=== PATIENT | female | born 1940 | race Caucasian/White ===

== ENCOUNTER → 2017-08-18 12:45 | Outpatient (CLI) | payer MEDICARE, OTHER, SELFPAY ==
--- NOTE | 2017-08-18 | DI.MG.S_ITS ---
UNILATERAL RIGHT DIGITAL DIAGNOSTIC MAMMOGRAM 3D/2D SHORT-TERM FOLLOW-UP: 08/18/2017 CLINICAL: Patient returns for a 6 month follow up of the right breast. Comparison is made to exams dated: 02/23/2017 mammogram, 02/09/2017 mammogram, and 01/17/2015 mammogram - [facility]. The tissue of the right breast is heterogeneously dense. This may lower the sensitivity of mammography. There is a 1 cm oval low density mass with an indistinct margin in the right breast at 10 o'clock middle depth. This is not seen in additional views. No other significant masses or calcifications are seen in the breast. IMPRESSION: PROBABLY BENIGN The 1 cm oval low density mass in the right breast is probably benign. Follow-up mammogram and ultrasound in 6 months is recommended. A follow-up mammogram and an ultrasound in 6 months is recommended to demonstrate stability. This exam was interpreted at Station ID: [id number]. NOTE: For mammograms, a report in lay terms will be sent to the patient. Approximately 15% of breast malignancies will not be visualized mammographically. In the management of a palpable breast mass, a negative mammogram must not discourage biopsy of a clinically suspicious lesion. Electronically Signed By: Corby coombs/boni:08/18/2017 15:56:12 letter sent: Followup Recommended ACR BI-RADS Category 3: Probably benign [id number]
== END ==
PROVIDERS: Family Provider Family Medicine; PCP Family Medicine; Visit Provider Family Medicine
DX: R92.8 Other abnormal and inconclusive findings on diagnostic imaging of breast (principal); N63.11 Unspecified lump in the right breast, upper outer quadrant
CPT/HCPCS: 77065; G0279

== ENCOUNTER → 2017-12-30 09:46 | Outpatient (CLI) | payer MEDICARE, OTHER, SELFPAY | PROVIDERS: PCP Family Medicine; Visit Provider Family Medicine | DX: M81.0 Age-related osteoporosis without current pathological fracture (principal); Z78.0 Asymptomatic menopausal state | CPT/HCPCS: 77080 ==

== ENCOUNTER → 2018-02-26 09:13 | Outpatient (CLI) | payer MEDICARE, OTHER, SELFPAY ==
--- NOTE | 2018-02-26 | DI.RAD.S_ITS ---
PROCEDURE: XR LUMBAR SPINE 2-3V INDICATIONS: LOW BACK PAIN TECHNIQUE: 3 views of the lumbar spine were acquired. COMPARISON: None. FINDINGS: Bones: No fracture or focal osseous destruction. Grade 1 anterolisthesis of L3 on L4. Diffuse facet arthropathy. Severe levoscoliosis is seen. Moderate to severe narrowing of the L2-L3, L3-L4 and L4-L5 disc spaces. Soft tissues: Overlying bowel gas pattern is normal. No suspicious soft tissue calcifications. IMPRESSION: Severe levoscoliosis. Multilevel lumbar disc degeneration most pronounced from the L2-L5 level, and diffuse facet arthropathy. Grade 1 anterolisthesis of L3 on L4. Dictated by: Serge Beth M.D. on 02/26/2018 at 10:34 Approved by: Serge Beth M.D. on 02/26/2018 at 10:36
--- NOTE | 2018-02-26 | DI.MG.S_ITS ---
BILATERAL DIGITAL DIAGNOSTIC MAMMOGRAM 3D/2D SHORT-TERM FOLLOW-UP: 02/26/2018 CLINICAL: Patient returns for 6 month follow up of right breast, due for bilateral exam. Comparison is made to exams dated: 08/18/2017 mammogram, 02/23/2017 mammogram, and 02/09/2017 mammogram - [facility]. The tissue of both breasts is heterogeneously dense. This may lower the sensitivity of mammography. The 1 cm oval low density mass with an indistinct margin in the right breast at 10 o'clock middle depth is no longer seen. No other significant masses, calcifications, or other findings are seen in either breast. IMPRESSION: The right breast asymmetry seen on the previous mammogram likely respresents superimposed fibroglandular tissue and is benign. There is no mammographic evidence of malignancy. A 1 year screening mammogram is recommended. This exam was interpreted at Station ID: [id number]. NOTE: For mammograms, a report in lay terms will be sent to the patient. Approximately 15% of breast malignancies will not be visualized mammographically. In the management of a palpable breast mass, a negative mammogram must not discourage biopsy of a clinically suspicious lesion. Electronically Signed By: Nieves ruiz/:02/26/2018 10:09:36 letter sent: Normal Exam ACR BI-RADS Category 2: Benign Finding(s) 3342F
== END ==
PROVIDERS: PCP Family Medicine; Visit Provider Family Medicine
DX: R92.8 Other abnormal and inconclusive findings on diagnostic imaging of breast (principal); N64.89 Other specified disorders of breast; M51.36 Other intervertebral disc degeneration, lumbar region; M43.16 Spondylolisthesis, lumbar region; M47.816 Spondylosis without myelopathy or radiculopathy, lumbar region; M41.86 Other forms of scoliosis, lumbar region
CPT/HCPCS: 72100; 77066; G0279

== ENCOUNTER → 2018-06-08 10:30 | Outpatient (CLI) | payer MEDICARE, OTHER, SELFPAY ==
--- NOTE | 2018-06-08 10:35 | DI.CT.S_ITS ---
PROCEDURE: CT CHEST WO CON INDICATIONS: PULMONARY NODULE FOLLOW UP TECHNIQUE: Noncontrast 2.0-2.5 mm thick sections acquired from the pulmonary apices to the posterior costophrenic angles. 7 mm thick coronal and sagittal MIP reformats were then acquired. A low radiation dose technique was utilized. COMPARISON: [facility], CT, ABDOMEN/PELVIS WITH CONTRAST, 04/03/2017, 11:50. FINDINGS: Image quality: Diagnostic, given the low radiation dose technique. Lungs and pleura: The right lower lobe 8 mm nodule just above or on the right hemidiaphragm appears unchanged. Mediastinum: Heart size is normal. No pericardial effusion. No mediastinal adenopathy by size criteria. Thoracic aorta and central pulmonary arteries are normal in size. Esophagus is normal in caliber. No hiatal hernia. Bones and chest wall: No suspicious bony lesions. No vertebral body compression fractures. No axillary or supraclavicular adenopathy by size criteria. Thyroid gland is normal. Abdomen: Visualized upper abdomen solid organs and bowel loops appear normal in the absence of contrast. IMPRESSION: 1. Stable 8 mm nodule in the right lower lobe since 04/03/2017. Please see enclosed followup recommendation. Fleischner Society criteria for SOLID lung nodule followup. Nodule size (mm)Low-risk patientHigh-risk patient<6 (single or multiple)No routine followup.Optional CT at 12 months. 6-8 (single or multiple)CT at 6-12 months, then optional CT at 18-24 mo.CT at 6-12 months, then CT at 18-24 months. >8 (single)CT at 3 months, PET-CT, or biopsy. Same as for low-risk pts. >8 (multiple)CT at 3-6 months, then optional CT at 18-24 mo.CT at 3-6 months, then CT at 18-24 months. Recommendations do not apply to lung cancer screening, patients with immunosuppression, or patients with known primary cancer. Dictated by: Ana Knapp M.D. on 06/08/2018 at 13:23 Approved by: Ana Knapp M.D. on 06/08/2018 at 18:17
== END ==
PROVIDERS: PCP Family Medicine; Visit Provider Family Medicine
DX: R91.1 Solitary pulmonary nodule (principal)
CPT/HCPCS: 71250

== ENCOUNTER → 2019-03-14 10:43 | Outpatient (CLI) | payer MEDICARE, OTHER, SELFPAY ==
--- NOTE | 2019-03-14 | DI.MG.S_ITS ---
BILATERAL DIGITAL SCREENING MAMMOGRAM 3D/2D WITH CAD: 03/14/2019 CLINICAL: Routine screening. Comparison is made to exams dated: 02/26/2018 mammogram, 08/18/2017 mammogram, 02/23/2017 mammogram, and 02/09/2017 mammogram - [facility]. There are scattered fibroglandular elements in both breasts. Current study was also evaluated with a Computer Aided Detection (CAD) system. No significant masses, calcifications, or other findings are seen in either breast. There has been no significant interval change. IMPRESSION: NEGATIVE There is no mammographic evidence of malignancy. A 1 year screening mammogram is recommended. This exam was interpreted at Station ID: [id number]. NOTE: For mammograms, a report in lay terms will be sent to the patient. Approximately 15% of breast malignancies will not be visualized mammographically. In the management of a palpable breast mass, a negative mammogram must not discourage biopsy of a clinically suspicious lesion. Electronically Signed By: Nieves ruiz/boni:03/14/2019 13:06:44 letter sent: Normal Exam ACR BI-RADS Category 1: Negative [id number]
== END ==
PROVIDERS: PCP Family Medicine; Visit Provider Family Medicine
DX: Z12.31 Encounter for screening mammogram for malignant neoplasm of breast (principal)
CPT/HCPCS: 77063; 77067

== ENCOUNTER → 2019-04-18 11:31 | Outpatient (CLI) | payer MEDICARE, OTHER, SELFPAY ==
--- NOTE | 2019-04-18 | DI.CT.S_ITS ---
PROCEDURE: CT CHEST WO CON INDICATIONS: LUNG NODULE TECHNIQUE: Noncontrast 2.0-2.5 mm thick sections acquired from the pulmonary apices to the posterior costophrenic angles. 7 mm thick axial MIP and 5 mm coronal and sagittal reformats were then acquired. A low radiation dose technique was utilized. COMPARISON: [facility], CT, ABDOMEN/PELVIS WITH CONTRAST, 04/03/2017, 11:50. [facility], CT, CT CHEST WO CON, 06/08/2018, 10:34. FINDINGS: Image quality: Diagnostic, given the low radiation dose technique. Lungs and pleura: Unchanged appearance of the previously described 8mm nodule right lower lobe since the prior study. This is also unchanged is a more remote study dated 04/03/17. No further followup is necessary. Mediastinum: Heart size is normal. No pericardial effusion. No mediastinal adenopathy by size criteria. Thoracic aorta and central pulmonary arteries are normal in size. Esophagus is normal in caliber. No hiatal hernia. Bones and chest wall: No suspicious bony lesions. No vertebral body compression fractures. No axillary or supraclavicular adenopathy by size criteria. Thyroid gland unremarkable. In the nonenhanced liver, there is suggestion of large hypoattenuating focus although poorly evaluated in the absence of IV contrast, and margins are vague. This could be further assessed with contrast-enhanced CT or consider ultrasound depending on clinical suspicion IMPRESSION: Stable appearance of the right basilar pulmonary nodule dating back to 04/03/17. No further followup required Possible hypodense lesion versus geographic fatty infiltration involving the visualized liver however suboptimal evaluation given noncontrast enhanced images only. This could be further assessed with ultrasound or contrast-enhanced cross-sectional imaging dependent on level of clinical suspicion. The appearance is new more conspicuous since prior studies Fleischner Society criteria for SOLID lung nodule followup. Nodule size (mm)Low-risk patientHigh-risk patient<6 (single or multiple)No routine followup.Optional CT at 12 months. 6-8 (single or multiple)CT at 6-12 months, then optional CT at 18-24 mo.CT at 6-12 months, then CT at 18-24 months. >8 (single)CT at 3 months, PET-CT, or biopsy. Same as for low-risk pts. >8 (multiple)CT at 3-6 months, then optional CT at 18-24 mo.CT at 3-6 months, then CT at 18-24 months. Fleischner Society criteria for SUB-SOLID lung nodule followup. Solitary pure ground-glass nodules<6 mm (ground glass or part solid)No followup needed. 6 mm or larger (ground glass)CT at 6-12 months to confirm persistence, then CT every 2 years until 5 years.6 mm or larger (part solid)CT at 3-6 months to confirm persistence, then annual CT until 5 years if unchanged and solid component remains <6 mm. Multiple sub-solid nodules<6 mmCT at 3-6 months, then CT consider at 2 & 4 years for high risk patients. [address] at 3-6 months. Subsequent management based on most suspicious lesions. Recommendations do not apply to lung cancer screening, patients with immunosuppression, or patients with known primary cancer. Dictated by: Serge Beth M.D. on 04/18/2019 at 15:12 Approved by: Serge Beth M.D. on 04/18/2019 at 15:20
== END ==
PROVIDERS: PCP Family Medicine; Referring Provider Family Medicine; Visit Provider Family Medicine
DX: R91.8 Other nonspecific abnormal finding of lung field (principal)
CPT/HCPCS: 71250

== ENCOUNTER → 2019-05-04 08:30 | Outpatient (CLI) | payer MEDICARE, OTHER, SELFPAY ==
--- NOTE | 2019-05-04 | DI.US.S_ITS ---
PROCEDURE: US ABDOMEN COMPLETE INDICATIONS: LIVER LESION SEEN ON CT, LIVER DISEASE UNSPECIFIED TECHNIQUE: Real-time scanning was performed of the abdominal and retroperitoneal organs, with image documentation. COMPARISON: None. FINDINGS: Liver: Liver is normal in size and heterogeneous in echotexture (which is predominately hyperechoic consistent with hepatic steatosis). There are areas of geographic margination of the borders of change in echotexture present, in a pattern consistent with fatty infiltration. A malignant appearing mass lesion is not found. Gallbladder: Appears normal Biliary ducts: Intrahepatic bile ducts are non-dilated. Extrahepatic bile duct caliber measures 5.2 mm. Normal is 6-7 mm or less in diameter, or 10 mm or less post-cholecystectomy. Pancreas: Visualized portions of the pancreas are sonographically normal. Spleen: Spleen is normal in size and homogeneous in echotexture. Kidneys: Kidneys are normal in size and echotexture. Right kidney measures 8.9 cm long; left kidney measures 9.4 cm long. No hydronephrosis or nephrolithiasis. No solid masses. Aorta: Visualized aorta is normal in caliber at less than 3 cm. Iliacs: Proximal common iliac arteries are normal in caliber at less than 2.5 cm. IVC: Intrahepatic inferior vena cava is patent. Miscellaneous: No free abdominal fluid. IMPRESSION: Hyperechoic liver echotexture overall with several areas of geographic margination of [id number]-normal echotexture interfaces. This geographic/annular margination is a common feature of focal fatty infiltration/hepatic steatosis in the liver. A malignant appearing mass is not found. Followup ultrasound in 3 months is recommended and also clinical correlation for etiology of hepatic steatosis is recommended. If possible the the etiology should be terminated to establish resolution of hepatic steatosis. Dictated by: Marcos Khanna M.D. on 05/04/2019 at 16:44 Approved by: Marcos Khanna M.D. on 05/04/2019 at 16:47
== END ==
PROVIDERS: PCP Family Medicine; Referring Provider Family Medicine; Visit Provider Family Medicine
DX: K76.9 Liver disease, unspecified (principal)
CPT/HCPCS: 76700

== ENCOUNTER → 2019-11-08 09:49 | Outpatient (CLI) | payer MEDICARE, OTHER, SELFPAY ==
--- NOTE | 2019-11-08 | DI.US.S_ITS ---
PROCEDURE: US ABDOMEN COMPLETE INDICATIONS: Fatty (change of) liver, not elsewhere classified TECHNIQUE: Real-time scanning was performed of the abdominal and retroperitoneal organs, with image documentation. COMPARISON: [facility], CT, ABDOMEN/PELVIS WITH CONTRAST, 04/03/2017, 11:50. FINDINGS: Liver: Liver is diffusely increased in echogenicity. No focal hepatic abnormalities identified. Normal hepatic size. Gallbladder: No gallstones identified. Normal gallbladder wall. No pericholecystic fluid. Negative sonographic Stephens sign. Biliary ducts: Intrahepatic bile ducts are non-dilated. Extrahepatic bile duct caliber measures 2.2 mm. Normal is 6-7 mm or less in diameter, or 10 mm or less post-cholecystectomy. Pancreas: Visualized portions of the pancreas are sonographically normal. Spleen: Spleen is normal in size and homogeneous in echotexture. Kidneys: Kidneys are normal in size and echotexture. Right kidney measures 9.6 cm long; left kidney measures 9.6 cm long. No hydronephrosis or nephrolithiasis. No solid masses. Aorta: Visualized aorta is normal in caliber at less than 3 cm. Iliacs: Proximal common iliac arteries are normal in caliber at less than 2.5 cm. IVC: Intrahepatic inferior vena cava is patent. Miscellaneous: No free abdominal fluid. IMPRESSION: Increased hepatic echogenicity noted possibly related to hepatic steatosis but other sources of hepatocellular disease cannot be excluded. Recommend clinical correlation. Dictated by: Gold BECKWITH Interpreted: Cassy Araiza MD on 11/08/2019 at 10:41 Approved by: Cassy Araiza M.D. on 11/08/2019 at 15:00
== END ==
PROVIDERS: PCP Family Medicine; Referring Provider Family Medicine; Visit Provider Family Medicine
DX: K76.0 Fatty (change of) liver, not elsewhere classified (principal)
CPT/HCPCS: 76700

== ENCOUNTER → 2020-01-02 11:53 | Outpatient (CLI) | payer MEDICARE, OTHER, SELFPAY ==
--- NOTE | 2020-01-02 | DI.US.S_ITS ---
PROCEDURE: US PELVIC COMPLETE INDICATIONS: POSTMENOPAUSAL BLEEDING,OSTEOPOROSIS TECHNIQUE: Real-time scanning was performed of the pelvic organs, with image documentation. Additional endovaginal scanning was necessary due to incomplete visualization of the adnexal and endometrial structures by transabdominal scanning. COMPARISON: None. FINDINGS: Transabdominal scanning: Limited scanning through the kidneys shows no hydronephrosis. No pathologic free abdominal or pelvic fluid. Endovaginal scanning: Uterus: The uterus is retroverted. Uterus is normal in size at 7.1 x 3.3 x 3.7 cm. The endometrium measures 11 mm in combined thickness. Ovaries: The right ovary measures 2.5 x 1.1 x 1.3 cm. The left ovary measures 3.1 x 1.9 x 1.6 cm. Both ovaries have a normal appearance with no solid or cystic masses. IMPRESSION: Endometrial thickening measuring 1.1 cm. Recommend endometrial biopsy. Dictated by: Agustín Mckeon M.D. on 01/02/2020 at 13:43 Approved by: Agustín Mckeon M.D. on 01/02/2020 at 13:47
== END ==
PROVIDERS: PCP Family Medicine; Referring Provider Family Medicine; Visit Provider Family Medicine
DX: N95.0 Postmenopausal bleeding (principal); R93.89 Abnormal findings on diagnostic imaging of other specified body structures; M81.0 Age-related osteoporosis without current pathological fracture
CPT/HCPCS: 76856

== ENCOUNTER → 2020-01-06 13:10 | Outpatient (CLI) | payer MEDICARE, OTHER, SELFPAY | PROVIDERS: PCP Family Medicine; Referring Provider Family Medicine; Visit Provider Family Medicine | DX: M85.852 Other specified disorders of bone density and structure, left thigh (principal); Z78.0 Asymptomatic menopausal state | CPT/HCPCS: 77080 ==

== ENCOUNTER → 2020-02-10 08:38 | Outpatient (CLI) | payer MEDICARE, OTHER, SELFPAY ==
[2020-02-10 09:15] LABS: Hematocrit 40.8 % (36-46); Mean Corpuscular HGB Conc 34.3 % (30-36); Mean Corpuscular Hemoglobin 34.9 PG (26-34); Mean Corpuscular Volume 101.6 fL (80-100); Platelet Count 233 X10^3/uL (150-400); Red Blood Cell Count 4.01 X10^6/uL (4.0-5.2); Red Cell Distribution Width 13.5 % (11.6-14.8); White Blood Cell Count 6.5 X10^3/uL (4.5-11.0)
[2020-02-10 09:41] LABS: BUN Creatinine Ratio 17.9 (6-22); Blood Urea Nitrogen 14 mg/dL (7-17); Calcium 9.4 mg/dL (8.4-10.2); Carbon Dioxide 29 mmol/L (22-32); Chloride 100 mmol/L (98-107); Estimated Glomerular Filt Rate > 60.0 mL/min (>60); Glucose 125 mg/dL (80-110); HEMOLYSIS < 15 (0-50); Potassium 4.8 mmol/L (3.4-5.1); Sodium 135 mmol/L (137-145)
[2020-02-10 10:09] LABS: Cancer Antigen 125 8.6 U/mL (0-35)
--- NOTE | 2020-02-10 10:10 | DI.CT.S_ITS ---
PROCEDURE: CT ABDOMEN PELVIS W CON INDICATIONS: ENDOMETRIAL CANCER TECHNIQUE: After the administration of oral and intravenous contrast, 5 mm thick sections acquired from the diaphragms to the symphysis. 5 mm thick coronal and sagittal reformats were performed. For radiation dose reduction, the following was used: automated exposure control, adjustment of mA and/or kV according to patient size. COMPARISON: [facility], CT, ABDOMEN/PELVIS WITH CONTRAST, 04/03/2017, 11:50. [facility], CT, CT CHEST WO CON, 06/08/2018, 10:34. [facility], CT, CT CHEST WO CON, 04/18/2019, 11:29. [facility], US, US PELVIC COMPLETE, 01/02/2020, 12:15. FINDINGS: Image quality: Excellent. ABDOMEN: Lung bases: Stable 6 mm right lung base nodule on the hemidiaphragm since 04/03/2017, likely benign.. Heart size is normal. Solid organs: Liver is normal in size and enhancement. Gallbladder is normal. Biliary system is non-dilated. Pancreas appears atrophic. Spleen is normal in size and enhancement. No adrenal nodules. Kidneys are normal in size and enhancement, without hydronephrosis. Peritoneum and bowel: Stomach, small bowel, and colon loops are normal in caliber and wall thickness. No free fluid or air. Nodes and vessels: No retroperitoneal or mesenteric adenopathy. Aorta and inferior vena cava are normal in caliber. Miscellaneous: No ventral hernias. PELVIS: Genitourinary: Uterus is normal in size. The central area of uterus is heterogeneous in enhancement. No adnexal mass. No pathological free-fluid in pelvis. Bladder wall thickness is normal. Miscellaneous: No inguinal hernias or adenopathy. Bones: No suspicious bony lesions. No vertebral body compression fractures. Scoliosis and degenerative changes in lumbar spine. IMPRESSION: 1. No findings to suggest metastatic disease. 2. Central area of uterus is heterogeneous in enhancement. Cannot rule out an endometrial mass. The endometrium appears thickened on the comparison ultrasound. Dictated by: Ana Knapp M.D. on 02/10/2020 at 15:38 Approved by: Ana Knapp M.D. on 02/10/2020 at 16:38
== END ==
PROVIDERS: PCP Family Medicine; Referring Provider Obstetrics & Gynecology Gynecologic Oncology; Visit Provider Obstetrics & Gynecology Gynecologic Oncology
DX: Z01.818 Encounter for other preprocedural examination; C54.1 Malignant neoplasm of endometrium; R91.8 Other nonspecific abnormal finding of lung field
CPT/HCPCS: 36415; 74177; 80048; 85027; 86304; 93005; Q9967

== ENCOUNTER → 2020-02-13 14:21 | Outpatient (CLI) | payer MEDICARE, OTHER, SELFPAY ==
--- NOTE | 2020-02-13 14:24 | DI.CT.S_ITS ---
PROCEDURE: CT CHEST W CON INDICATIONS: ENDOMETRIAL CANCER TECHNIQUE: After the administration of intravenous contrast, 5 mm thick sections acquired from the pulmonary apices to the posterior costophrenic angles. 1 mm axial lung, 5 mm thick coronal and sagittal reformats and 7 mm axial MIP were acquired. For radiation dose reduction, the following was used: automated exposure control, adjustment of mA and/or kV according to patient size. COMPARISON: None. FINDINGS: Image quality: Excellent. Lungs and pleura: No acute air space opacities. No pleural effusions or pneumothorax. Central and peripheral airways are patent and normal in caliber. Mediastinum: Heart size is normal. No pericardial effusion. No mediastinal or hilar adenopathy by size criteria. Thoracic aorta and central pulmonary arteries are normal in size. Esophagus is normal in caliber. No hiatal hernia. Bones and chest wall: No suspicious bony lesions. No vertebral body compression fractures. No axillary or supraclavicular adenopathy by size criteria. Thyroid is grossly unremarkable Hepatic steatosis. IMPRESSION: No evidence of metastatic disease. No acute consolidation. Dictated by: Serge Beth M.D. on 02/13/2020 at 15:40 Approved by: Serge Beth M.D. on 02/13/2020 at 15:47
== END ==
PROVIDERS: PCP Family Medicine; Referring Provider Obstetrics & Gynecology Gynecologic Oncology; Visit Provider Obstetrics & Gynecology Gynecologic Oncology
DX: C54.1 Malignant neoplasm of endometrium (principal)
CPT/HCPCS: 71260; Q9967

== ENCOUNTER → 2020-04-09 08:33 | Outpatient (CLI) | payer MEDICARE, OTHER, SELFPAY ==
--- NOTE | 2020-04-09 | DI.RAD.S_ITS ---
PROCEDURE: FL GUIDED PICC PLACEMENT INDICATIONS: CHEMOTHERAPY COMPARISON: None. FINDINGS: PICC was placed by the intravenous therapy team from the left side. Fluoroscopic spot film demonstrates the tip of PICC projecting to the area of the azygos arch region of the superior vena cava IMPRESSION: Tip of PICC projects to the area of azygos arch region of the superior vena cava. Dictated by: Marcos Khanna M.D. on 04/09/2020 at 9:57 Approved by: Marcos Khanna M.D. on 04/09/2020 at 9:58
== END ==
PROVIDERS: PCP Family Medicine; Referring Provider Internal Medicine; Visit Provider Internal Medicine
DX: Z45.2 Encounter for adjustment and management of vascular access device (principal)
CPT/HCPCS: 36573

== ENCOUNTER → 2020-06-04 12:21 | Outpatient (CLI) | payer MEDICARE, OTHER, SELFPAY ==
--- NOTE | 2020-06-04 12:22 | DI.CT.S_ITS ---
PROCEDURE: CT CHEST ABD PEL W CON INDICATIONS: Eval for poss mets of endometrial cancer TECHNIQUE: After the administration of oral and intravenous contrast, 5 mm thick sections acquired from the lung apices to the symphysis. 5 mm coronal and sagittal reformats were performed, with additional 7 mm coronal MIP reformats through the lungs. For radiation dose reduction, the following was used: automated exposure control, adjustment of mA and/or kV according to patient size. COMPARISON: [facility], CT, CT ABDOMEN PELVIS W CON, 02/10/2020, 9:54. [facility], CT, CT CHEST W CON, 02/13/2020, 14:24. FINDINGS: Image quality: Excellent. CHEST: Lungs and pleura: No acute airspace opacities. No pleural effusions or pneumothorax. Central and peripheral airways appear patent and normal in caliber. Mediastinum: Heart size is normal. No pericardial effusion. No mediastinal or hilar adenopathy by size criteria. Thoracic aorta and central pulmonary arteries are normal in size. Esophagus is normal in caliber. No hiatal hernia. Chest wall: No axillary or supraclavicular adenopathy by size criteria. Thyroid gland is unremarkable as visualized . ABDOMEN: Solid organs: Liver is normal in size and enhancement. Gallbladder is unremarkable. Biliary system is non dilated. Pancreas enhances normally. Spleen is normal in size and enhancement. No adrenal nodules. Kidneys demonstrate normal size and enhancement, without hydronephrosis. Peritoneum and bowel: Bowel loops demonstrate normal wall thickness and caliber. No free fluid or air. Nodes and vessels: No retroperitoneal or mesenteric adenopathy by size criteria. Aorta and inferior vena cava are normal in size. Miscellaneous: No ventral hernias. PELVIS: Genitourinary: Bladder wall thickness is normal. Miscellaneous: No inguinal hernias or adenopathy. Interval hysterectomy. Bones: No suspicious bony lesions. No vertebral body compression fractures. Lumbar degenerative change with canal stenosis at L3-L4. IMPRESSION: 1. Interval hysterectomy. 2. No evidence of metastatic disease in the chest, abdomen, and pelvis. 3. Incidental note made of lumbar canal stenosis at L3-L4. Dictated by: Mario Chowdary M.D. on 06/04/2020 at 14:24 Approved by: Mario Chowdary M.D. on 06/04/2020 at 14:28
== END ==
PROVIDERS: PCP Family Medicine; Referring Provider Obstetrics & Gynecology; Visit Provider Obstetrics & Gynecology
DX: C55 Malignant neoplasm of uterus, part unspecified (principal); N95.0 Postmenopausal bleeding; M48.061 Spinal stenosis, lumbar region without neurogenic claudication; Z92.21 Personal history of antineoplastic chemotherapy; Z90.710 Acquired absence of both cervix and uterus
CPT/HCPCS: 71260; 74177; Q9967

== ENCOUNTER → 2020-12-11 15:09 | Outpatient (CLI) | payer MEDICARE, OTHER, SELFPAY ==
--- NOTE | 2020-12-11 15:15 | DI.RAD.S_ITS ---
PROCEDURE: XR RIBS RT MIN 3V W CXR 1V INDICATIONS: RT RIB PAIN POST FALL TECHNIQUE: 2 views of the right ribs were acquired, along with a single view chest. COMPARISON: None. FINDINGS: Surgical changes and devices: None. Bones and chest wall: Scoliosis noted and scattered degenerative discogenic changes. No fracture seen. Lungs and pleura: No pleural effusions or pneumothorax. Lungs appear clear. Mediastinum: Mediastinal contours appear normal. Heart size is normal. IMPRESSION: No fracture identified. No acute disease Dictated by: Serge Beth M.D. on 12/11/2020 at 17:02 Approved by: Serge Beth M.D. on 12/11/2020 at 17:04
--- NOTE | 2020-12-11 15:16 | DI.CT.S_ITS ---
PROCEDURE: CT HEAD/BRAIN WO CON INDICATIONS: Unspecified injury of head, initial encounter/rib TECHNIQUE: Noncontrast 4.5 mm thick angled axial sections acquired from the foramen magnum to the vertex, with coronal and sagittal reformats. For radiation dose reduction, the following was used: automated exposure control, adjustment of mA and/or kV according to patient size. COMPARISON: None. FINDINGS: Image quality: Excellent. CSF spaces: Basal cisterns are patent. No extra-axial fluid collections. The ventricles are symmetric in size and shape. Brain: No intracranial bleeds or masses. There is cerebral volume loss for age, with resultant ventricular and sulcal prominence. There are periventricular and deep white matter chronic small vessel ischemic changes. There is intracranial internal carotid artery atherosclerosis. Skull and face: Calvarium and visualized facial bones appear intact, without suspicious lesions. Sinuses: Visualized sinuses and mastoids are clear. IMPRESSION: No acute intracranial abnormality. Global cerebral volume loss and chronic microvascular ischemic changes. Dictated by: Rah Pagan M.D. on 12/11/2020 at 15:43 Approved by: Rah Pagan M.D. on 12/11/2020 at 15:44
== END ==
PROVIDERS: PCP Family Medicine; Referring Provider Family Medicine; Visit Provider Family Medicine
DX: R55 Syncope and collapse (principal); S09.90XA Unspecified injury of head, initial encounter; R07.81 Pleurodynia; W19.XXXA Unspecified fall, initial encounter
CPT/HCPCS: 70450; 71101

== ENCOUNTER → 2020-12-27 15:29 | Outpatient (CLI) | payer MEDICARE, OTHER, SELFPAY ==
--- NOTE | 2020-12-27 15:30 | DI.ECHO.S_ITS ---
[facility]---------+ [facility] +---------+ : : [address] : : : : [id number] : : : : Phone: [phone]+ Echocardiogram Report + + :Name: ROSS ARMENTA Study Date: 12/27/2020 Height: 63 in : :[facility] ReadingLocation: Weight: 122 lb : : Gender: Female BSA: 1.6 m2 : :: 1940 Age: 80 yrs BP: 163/93 mmHg: :Reason For Study: SYNCOPE AND COLLAPSE : :Ordering Physician: ANGEL, : :ARTIE Performed By: Jalyn Ardon : :Referring: ARTIE ORTIZ : + + Interpretation Summary The left ventricle is normal in size and wall thickness. Left ventricular systolic function appears normal without focal wall motion abnormalities. The ejection fraction is estimated to be 60-65%. Diastolic parameters suggest probable normal left ventricular diastolic function and normal filling pressures. The right ventricle is normal in size and function. The left atrial size is normal. Right atrial size is normal. There is mild aortic regurgitation. There is no other significant valvular heart disease. The aortic root is normal size. Procedure: A two-dimensional transthoracic echocardiogram with color flow and Doppler was performed. The study quality was technically adequate. There is no prior echocardiogram noted for this patient. The patient was in sinus rhythm with heart rates between 76-85 bpm during the exam. Left Ventricle: The left ventricle is normal in size and wall thickness. Left ventricular systolic function appears normal without focal wall motion abnormalities. The ejection fraction is estimated to be 60-65%. Diastolic parameters suggest probable normal left ventricular diastolic function and normal filling pressures. Right Ventricle: The right ventricle is normal in size and function. Atria: The left atrial size is normal. Right atrial size is normal. There is no Doppler evidence for an interatrial shunt. Mitral Valve: The mitral valve is normal in structure and function. There is trace mitral regurgitation. Aortic Valve: The aortic valve is trileaflet. The aortic valve opens well. There is no aortic valve stenosis. There is mild aortic regurgitation. Tricuspid Valve: The tricuspid valve is normal in structure and function. There is trace tricuspid regurgitation. Pulmonic Valve: The pulmonic valve leaflets are thin and pliable; valve motion is normal. There is no pulmonic valvular regurgitation. There is no other significant valvular heart disease. Great Vessels: The aortic root is normal size. The dimensions of the ascending aorta are normal. The IVC is of normal diameter and collapses greater than 50% with a sniff. This suggests a low right atrial pressure of 3 mm Hg. Pericardium/ Pleura There is no pericardial effusion. There is no pleural effusion. MMode/2D Measurements & Calculations LVIDd: 3.9 cm LVOT diam: 1.8 cm LVIDs: 2.4 cm Ao root diam: 3.1 cm FS: 36.7 % asc Aorta Diam: 3.2 cm IVSd: 0.76 cm Ao Arch Diam (Prox Trans): 3.0 cm LVPWd: 0.61 cm LV ellison. diameter/BSA (cm/m^2): 2.5 LV sys. diameter/BSA (cm/m^2): 1.6 LA A2 area: 14.4 cm2 RA long axis: 3.6 cm LA A4 area: 12.5 cm2 RA area: 8.6 cm2 LA length (vol): 4.2 cm RA vol: 17.5 ml LA vol: 36.4 ml RA : 11.1 ml/m2 LA vol index: 23.2 ml/m2 IVC diam: 1.0 cm RVD1 (basal): 2.9 cm TAPSE: 1.8 cm Doppler Measurements & Calculations Ao V2 max: 120.5 cm/sec LVOT Max Lucas: 98.4 cm/sec Ao V2 mean: 84.0 cm/sec LV V1 max P.9 mmHg Ao max P.8 mmHg LV V1 VTI: 20.8 cm Ao mean P.1 mmHg PUNEET(I,D): 2.3 cm2 Ao V2 VTI: 23.3 cm PUNEET(V,D): 2.1 cm2 sev ratio: 0.89 PUNEET indexed to BSA (cm^2/m^2): 1.5 MV E max lucas: 71.5 cm/sec PA V2 max: 109.5 cm/sec MV A max lucas: 74.2 cm/sec PA V2 mean: 75.6 cm/sec MV E/A: 0.96 PA mean P.6 mmHg Med Peak E' Lucas: 7.3 cm/sec PA pr(Accel): 31.0 mmHg E/E' med: 9.8 Lat Peak E' Lucas: 7.1 cm/sec E/E' lat: 10.0 E/e' average: 9.9 MV dec time: 0.25 sec SV(LVOT): 53.6 ml Reading Physician:06:28 PM
== END ==
PROVIDERS: PCP Family Medicine; Referring Provider Family Medicine; Visit Provider Family Medicine
DX: R55 Syncope and collapse (principal); I35.1 Nonrheumatic aortic (valve) insufficiency
CPT/HCPCS: 93306

== ENCOUNTER → 2020-12-31 11:38 | Outpatient (CLI) | payer MEDICARE, OTHER, SELFPAY ==
--- NOTE | 2021-01-17 16:48 | PM.CARDMON.1 ---
Furnishings Conservator Report Referral & Results Date Patient Seen: 12/31/20 Requesting provider: Itzel Payne Indication: Syncope Duration of monitoring (days): 7 Diary information: There were no patient events to review Data: Minimum heart rate identified was 59 beats per minute at 15:33 on 01/04/2021 Maximum sinus heart rate was 136 beats per minute at 07:59 on 01/01/2021 Maximum overall heart rate was 171 beats per minute at 19:44 on 12/26/2020 during a run of SVT Approximately 3.4% of identified beats were identified as supraventricular ectopic in origin which would classify them as occasional Less than 1% of identified beats were ventricular ectopic in origin which would classify them as rare There were 14 runs of SVT the fastest being the 7 beat run noted above the longest lasting 11.4 seconds at a rate of 146 beats per minute No pauses or atrial fibrillation Impression: Essentially normal 7 day classroom monitor. There are occasional PACs There also very rare very brief runs of SVT present
== END ==
PROVIDERS: PCP Family Medicine; Referring Provider Family Medicine; Visit Provider Family Medicine
DX: R55 Syncope and collapse (principal)
CPT/HCPCS: 93242; 93244

== ENCOUNTER → 2021-05-03 10:25 | Outpatient (CLI) | payer MEDICARE, OTHER, SELFPAY ==
--- NOTE | 2021-05-03 | DI.MG.S_ITS ---
BILATERAL DIGITAL SCREENING MAMMOGRAM 3D/2D WITH CAD: 05/03/2021 CLINICAL: Routine screening. Comparison is made to exams dated: 03/14/2019 mammogram, 02/26/2018 mammogram, 08/18/2017 mammogram, and 02/09/2017 mammogram - [facility]. There are scattered fibroglandular elements in both breasts. Current study was also evaluated with a Computer Aided Detection (CAD) system. There are benign vascular calcifications in both breasts. No significant masses, calcifications, or other findings are seen in either breast. There has been no significant interval change. IMPRESSION: BENIGN There is no mammographic evidence of malignancy. A 1 year screening mammogram is recommended. This exam was interpreted at Station ID: [id number]. NOTE: For mammograms, a report in lay terms will be sent to the patient. Approximately 15% of breast malignancies will not be visualized mammographically. In the management of a palpable breast mass, a negative mammogram must not discourage biopsy of a clinically suspicious lesion. Electronically Signed By: Nieves ruiz/boni:05/03/2021 12:11:01 letter sent: Normal Exam ACR BI-RADS Category 2: Benign Finding(s) [id number]
== END ==
PROVIDERS: Family Provider Family Medicine; PCP Family Medicine; Referring Provider Family Medicine; Visit Provider Family Medicine
DX: Z12.31 Encounter for screening mammogram for malignant neoplasm of breast (principal)
CPT/HCPCS: 77063; 77067

== ENCOUNTER → 2021-05-23 13:40 | Outpatient (CLI) | payer MEDICARE, OTHER, SELFPAY ==
[2021-05-23 15:31] LABS: Cancer Antigen 125 6.5 U/mL (0-35)
== END ==
PROVIDERS: Family Provider Family Medicine; PCP Family Medicine; Referring Provider Registered Nurse Obstetric, High-Risk; Visit Provider Registered Nurse Obstetric, High-Risk
DX: C54.1 Malignant neoplasm of endometrium (principal); Z85.42 Personal history of malignant neoplasm of other parts of uterus; Z08 Encounter for follow-up examination after completed treatment for malignant neoplasm
CPT/HCPCS: 36415; 86304

== ENCOUNTER 2021-05-30 09:00 | Outpatient (RCR) | payer MEDICARE, OTHER, SELFPAY ==
--- NOTE | 2021-04-23 10:20 | PT.OIE ---
Current Diagnoses Unsteadiness on feet (04/23/21) History of falling (04/23/21) Past Surgical History Status post appendectomy Status post surgery (04/17/17) Status post tonsillectomy and adenoidectomy Visit Care Team Role Provider Type Itzel Payne MD Attending Provider Physician Family Provider Primary Care Provider Referring Provider Specialty: [facility] Practice Address: [address] [place] [address], [facility] Email: [email or web address] Physical Therapy Initial Evaluation PT-OP-A Visit Information Start: 04/17/21 14:27 Freq: Status: Active Protocol: Document 04/23/21 09:45 AMB (Rec: 04/28/21 09:58 AMB [id number]) Out-Patient Physical Therapy Visit Information Visit Information Visit Type Initial Evaluation Visit Start Time 09:45 Visit Stop Time 10:30 Total Visit Minutes 45 Visit Number 1 PT-OP-B Current Condition Start: 04/17/21 14:27 Freq: Status: Active Protocol: Document 04/23/21 09:51 AMB (Rec: 04/23/21 10:05 AMB [id number]) Current Condition History of Current Condition Onset Date 6 months ago Current Complaints History of falling, unsteadiness History of Current Condition Tierney reports she has recently finished chemotherapy for endometrial cancer. She has noticed more difficulty getting up from the floor while carrying her great grandson. Goes on a 2 mile walk once a week, does take walking sticks. Did have falls when getting chemo but none in the last 3 months, always fell backwards. Lives with who is 88. Does have a flight of stairs to enter with a railing, lives in a split level. Treatment Goals Patient/Caregiver Goals Going to [place]- wants to walk through the airport Prior Functional Status Baseline Function- ADL's Independent Baseline Function- Mobility Independent Current Functional Impairments (Reported) Functional Limitations- ADL's Less sure of footing with higher level balance Personal Factors Other Personal Factors That May Effect Recently finished chemotherapy Therapy/Recovery for endometrial cancer. PT-OP-C Subjective Start: 04/17/21 14:27 Freq: Status: Active Protocol: Document 04/23/21 09:45 AMB (Rec: 04/28/21 09:58 AMB [id number]) Patient Questionnaires ABC- Activity Specific Balance Confidence Scale ABC Score 97 ABC Functional Impairment 1 to <20% Impaired (Score 81- 99) Dizziness Handicap Inventory DHI Score 6 DHI Functional Impairment 1 to 19% Impaired (Score 1-19) PT-OP-D Balance Start: 04/17/21 14:27 Freq: Status: Active Protocol: Document 04/23/21 09:45 AMB (Rec: 04/28/21 10:19 AMB [id number]) Balance Tests mCTSIB mCTSIB Position 1 30 seconds mCTSIB Position 2 30 seconds mCTSIB Position 3 30seconds mCTSIB Position 4 20 seconds-opens eyes Other Other Balance Tests Performed reduced proprioception at right great toe, WNL at bilateral ankles PT-OP-E Functional Tests Start: 04/17/21 14:27 Freq: Status: Active Protocol: Document 04/23/21 09:45 AMB (Rec: 04/28/21 10:19 AMB [id number]) Functional Tests Dynamic Gait Index (DGI) Score 23 DGI Impairment Rating 1 to <20% Impaired (Score 20- 23) PT-OP-G Mobility & Gait Start: 04/17/21 14:27 Freq: Status: Active Protocol: Document 04/23/21 09:45 AMB (Rec: 04/28/21 10:19 AMB [id number]) OP Gait Assessment Comments Gait Comments Ambulates over smooth surfaces without AD with good stride length/speed PT-OP-M Strength Start: 04/17/21 14:27 Freq: Status: Active Protocol: Document 04/23/21 09:45 AMB (Rec: 04/28/21 10:19 AMB [id number]) Ankle/Foot Strength Ankle and Foot Manual Muscle Testing Right Dorsiflexion (L4) 4 Good Plantarflexion (S1) 4 Good Inversion 4 Good Eversion (S1) 4 Good Left Dorsiflexion (L4) 4 Good Plantarflexion (S1) 4 Good Inversion 4 Good Eversion (S1) 4 Good PT-OP-Q Treatments Start: 04/17/21 14:27 Freq: Status: Active Protocol: Document 04/23/21 09:45 AMB (Rec: 04/28/21 10:19 AMB [id number]) Neuro Re-Education Treatment Balance Activities corner balance Comments stride stance vs NBOS EC vs EO HT PT-OP-T Assessment and Plan Start: 04/17/21 14:27 Freq: Status: Active Protocol: Document 04/23/21 09:45 AMB (Rec: 04/28/21 10:19 AMB [id number]) Physical Therapy Assessment Rehab Potential Rehabilitation Potential Good Evaluation Complexity Number of Personal Factors/Comorbidities 1-2 Number of Body Systems Impaired 4 or More Clinical Presentation at Evaluation Stable Impairments Impairments Activity Tolerance,Functional Activities,Gait,Sensation, Strength Goals Two Impairment Gait Short Term Goal (STG) Teri will ambulate 1,000 feet or more in 6 minutes over smooth surface without AD to show appropriate speed for her age/gender. STG Duration 4 weeks Intermediate Goal (LTG) Teri will ambulate on uneven terrain (grass/gravel/ hills) without AD without LOB or fear of falling. LTG Duration 8 weeks One Impairment Balance Short Term Goal (STG) Teri will show improved balance by balancing on foam with eyes closed for 30 seconds. STG Duration 4 weeks Intermediate Goal (LTG) Teri will show improved balance by scoring 24/24 on the dynamic gait index. LTG Duration 8 weeks Assessment Summary Assessment Teri attends physical therapy wanting to fine tune her balance. She has noticed she has lost some strength/ endurance while going through treatment for endometrial cancer. She did have some falls when she was going through chemo, but has not had any in the last 3 months after finishing it. During assessment, she was found to have mildly reduced proprioception at the right great toe, mild strength deficits at the bilateral feet /ankles and had difficulty with eyes closed and foam balance. Otherwise she did quite well on balance testing, but given her high level goals of walking on the beach in [place], making it through the airport, she would benefit from physical therapy to improve her safety with uneven surfaces and low light conditions. Physical Therapy Plan Frequency and Duration Frequency of Treatment 2x/Week Duration of Treatment 8 weeks Plan of Care Start Date 04/23/21 Plan of Care End Date 06/18/21 Therapeutic Interventions Therapeutic Interventions Balance Training,Gait Training ,Home Exercise Program,Manual Therapy,Neuromuscular Re- education,Self-Care/Home Management,Therapeutic Activities,Therapeutic Exercises Next Visit Focus/Plan Next Note Type Treatment Note Next Visit Plan follow up on corner balance
--- NOTE | 2021-04-23 10:20 | PT.OPPOC ---
Physical, Occupational & Speech Therapy At [facility] Current Diagnoses Unsteadiness on feet (04/23/21) History of falling (04/23/21) Visit Care Team Role Provider Type Itzel Payne MD Attending Provider Physician Family Provider Primary Care Provider Referring Provider Specialty: Family Practice Address: [address] [place] [address], [facility] Email: [email or web address] Plan Of Care PT-OP-T Assessment and Plan Start: 04/17/21 14:27 Freq: Status: Active Protocol: Document 04/23/21 09:45 AMB (Rec: 04/28/21 10:19 AMB [id number]) Physical Therapy Assessment Rehab Potential Rehabilitation Potential Good Evaluation Complexity Number of Personal Factors/Comorbidities 1-2 Number of Body Systems Impaired 4 or More Clinical Presentation at Evaluation Stable Impairments Impairments Activity Tolerance,Functional Activities,Gait,Sensation, Strength Goals Two Impairment Gait Short Term Goal (STG) Teri will ambulate 1,000 feet or more in 6 minutes over smooth surface without AD to show appropriate speed for her age/gender. STG Duration 4 weeks Medical Historian Goal (LTG) Teri will ambulate on uneven terrain (grass/gravel/ hills) without AD without LOB or fear of falling. LTG Duration 8 weeks One Impairment Balance Short Term Goal (STG) Teri will show improved balance by balancing on foam with eyes closed for 30 seconds. STG Duration 4 weeks Residential Goal (LTG) Teri will show improved balance by scoring 24/24 on the dynamic gait index. LTG Duration 8 weeks Assessment Summary Assessment Teri attends physical therapy wanting to fine tune her balance. She has noticed she has lost some strength/ endurance while going through treatment for endometrial cancer. She did have some falls when she was going through chemo, but has not had any in the last 3 months after finishing it. During assessment, she was found to have mildly reduced proprioception at the right great toe, mild strength deficits at the bilateral feet /ankles and had difficulty with eyes closed and foam balance. Otherwise she did quite well on balance testing, but given her high level goals of walking on the beach in [place], making it through the airport, she would benefit from physical therapy to improve her safety with uneven surfaces and low light conditions. Physical Therapy Plan Frequency and Duration Frequency of Treatment 2x/Week Duration of Treatment 8 weeks Plan of Care Start Date 04/23/21 Plan of Care End Date 06/18/21 Therapeutic Interventions Therapeutic Interventions Balance Training,Gait Training ,Home Exercise Program,Manual Therapy,Neuromuscular Re- education,Self-Care/Home Management,Therapeutic Activities,Therapeutic Exercises Next Visit Focus/Plan Next Note Type Treatment Note Next Visit Plan follow up on corner balance Plan of Care Dates Plan of Care Start Date 04/23/21 Plan of Care End Date 06/18/21 Electronically Signed by: Uyen Vital, PT 04/28/21 1020 Please Sign and Return: I have reviewed this Plan of Care and certify that the skilled therapy services above are required to meet the patient?s needs. Physician Signature Date Printed Name and Credentials Clinical Instructor Signature Printed Name and Credentials
--- NOTE | 2021-05-07 16:37 | PT.OTN ---
Current Diagnoses Unsteadiness on feet (05/07/21) History of falling (05/07/21) Physical Therapy Treatment Note PT-OP-A Visit Information Start: 04/17/21 14:27 Freq: Status: Active Protocol: Document 05/07/21 09:00 AMB (Rec: 05/07/21 16:34 AMB [id number]) Out-Patient Physical Therapy Visit Information Visit Information Visit Type Treatment Note Visit Start Time 09:00 Visit Stop Time 09:45 Total Visit Minutes 45 Visit Number 2 PT-OP-B Current Condition Start: 04/17/21 14:27 Freq: Status: Active Protocol: Document 04/23/21 09:51 AMB (Rec: 04/23/21 10:05 AMB [id number]) Current Condition History of Current Condition Onset Date 6 months ago Current Complaints History of falling, unsteadiness History of Current Condition Tierney reports she has recently finished chemotherapy for endometrial cancer. She has noticed more difficulty getting up from the floor while carrying her great grandson. Goes on a 2 mile walk once a week, does take walking sticks. Did have falls when getting chemo but none in the last 3 months, always fell backwards. Lives with who is 88. Does have a flight of stairs to enter with a railing, lives in a split level. Treatment Goals Patient/Caregiver Goals Going to [place]- wants to walk through the airport Prior Functional Status Baseline Function- ADL's Independent Baseline Function- Mobility Independent Current Functional Impairments (Reported) Functional Limitations- ADL's Less sure of footing with higher level balance Personal Factors Other Personal Factors That May Effect Recently finished chemotherapy Therapy/Recovery for endometrial cancer. PT-OP-C Subjective Start: 04/17/21 14:27 Freq: Status: Active Protocol: Document 05/07/21 09:00 AMB (Rec: 05/07/21 16:34 AMB [id number]) OP-PT Subjective Patient Comments Patient Comments Tierney has been doing her corner balance exercises. She is going to [place] in one month. PT-OP-D Balance Start: 04/17/21 14:27 Freq: Status: Active Protocol: Document 04/23/21 09:45 AMB (Rec: 04/28/21 10:19 AMB [id number]) Balance Tests mCTSIB mCTSIB Position 1 30 seconds mCTSIB Position 2 30 seconds mCTSIB Position 3 30seconds mCTSIB Position 4 20 seconds-opens eyes Other Other Balance Tests Performed reduced proprioception at right great toe, WNL at bilateral ankles PT-OP-E Functional Tests Start: 04/17/21 14:27 Freq: Status: Active Protocol: Document 04/23/21 09:45 AMB (Rec: 04/28/21 10:19 AMB [id number]) Functional Tests Dynamic Gait Index (DGI) Score 23 DGI Impairment Rating 1 to <20% Impaired (Score 20- 23) PT-OP-G Mobility & Gait Start: 04/17/21 14:27 Freq: Status: Active Protocol: Document 04/23/21 09:45 AMB (Rec: 04/28/21 10:19 AMB [id number]) OP Gait Assessment Comments Gait Comments Ambulates over smooth surfaces without AD with good stride length/speed PT-OP-M Strength Start: 04/17/21 14:27 Freq: Status: Active Protocol: Document 04/23/21 09:45 AMB (Rec: 04/28/21 10:19 AMB [id number]) Ankle/Foot Strength Ankle and Foot Manual Muscle Testing Right Dorsiflexion (L4) 4 Good Plantarflexion (S1) 4 Good Inversion 4 Good Eversion (S1) 4 Good Left Dorsiflexion (L4) 4 Good Plantarflexion (S1) 4 Good Inversion 4 Good Eversion (S1) 4 Good PT-OP-Q Treatments Start: 04/17/21 14:27 Freq: Status: Active Protocol: Document 05/07/21 09:42 AMB (Rec: 05/07/21 09:44 AMB [id number]) Gym Equipment Shuttle Balance BLUE Comments WBOS fwd EO HT Therapeutic Exercises Standing Exercises 2 Standing Exercise Name forward lunges Comments UE support, irritated knee 1 Standing Exercise Name sit to stand Reps/Minutes 2x10 Comments light UE support Gait Training Gait Activity 1 Description 6MWT Comments 1,145ft Neuro Re-Education Treatment Balance Activities corner balance Comments stride stance vs NBOS EC vs EO HT/added foam balance today PT-OP-T Assessment and Plan Start: 04/17/21 14:27 Freq: Status: Active Protocol: Document 05/07/21 09:00 AMB (Rec: 05/07/21 16:34 AMB [id number]) Physical Therapy Assessment Goals Two Impairment Gait Short Term Goal (STG) Teri will ambulate 1,000 feet or more in 6 minutes over smooth surface without AD to show appropriate speed for her age/gender. STG Duration 4 weeks Dye Colorist Formulator Goal (LTG) Teri will ambulate on uneven terrain (grass/gravel/ hills) without AD without LOB or fear of falling. LTG Duration 8 weeks One Impairment Balance Short Term Goal (STG) Teri will show improved balance by balancing on foam with eyes closed for 30 seconds. STG Duration 4 weeks Dye Colorist Formulator Goal (LTG) Teri will show improved balance by scoring 24/24 on the dynamic gait index. LTG Duration 8 weeks Assessment Summary Assessment Tierney did alright with her 6MWT, did score within age/ gender norms. Did have knee pain with lunges, but sit to stand went well. Physical Therapy Plan Next Visit Focus/Plan Next Note Type Treatment Note Next Visit Plan Outdoor uneven terrain training if weather allows
--- NOTE | 2021-05-10 13:05 | PT.OTN ---
Current Diagnoses Unsteadiness on feet (05/10/21) History of falling (05/10/21) Physical Therapy Treatment Note PT-OP-A Visit Information Start: 04/17/21 14:27 Freq: Status: Active Protocol: Document 05/10/21 09:02 AMB (Rec: 05/10/21 09:44 AMB [id number]) Out-Patient Physical Therapy Visit Information Visit Information Visit Type Treatment Note Visit Start Time 09:00 Visit Stop Time 09:45 Total Visit Minutes 45 Visit Number 3 PT-OP-B Current Condition Start: 04/17/21 14:27 Freq: Status: Active Protocol: Document 04/23/21 09:51 AMB (Rec: 04/23/21 10:05 AMB [id number]) Current Condition History of Current Condition Onset Date 6 months ago Current Complaints History of falling, unsteadiness History of Current Condition Tierney reports she has recently finished chemotherapy for endometrial cancer. She has noticed more difficulty getting up from the floor while carrying her great grandson. Goes on a 2 mile walk once a week, does take walking sticks. Did have falls when getting chemo but none in the last 3 months, always fell backwards. Lives with who is 88. Does have a flight of stairs to enter with a railing, lives in a split level. Treatment Goals Patient/Caregiver Goals Going to [place]- wants to walk through the airport Prior Functional Status Baseline Function- ADL's Independent Baseline Function- Mobility Independent Current Functional Impairments (Reported) Functional Limitations- ADL's Less sure of footing with higher level balance Personal Factors Other Personal Factors That May Effect Recently finished chemotherapy Therapy/Recovery for endometrial cancer. PT-OP-C Subjective Start: 04/17/21 14:27 Freq: Status: Active Protocol: Document 05/10/21 09:00 AMB (Rec: 05/10/21 13:05 AMB [id number]) OP-PT Subjective Patient Comments Patient Comments Tierney says her walking partner thinks she is walking a bit faster. PT-OP-D Balance Start: 04/17/21 14:27 Freq: Status: Active Protocol: Document 04/23/21 09:45 AMB (Rec: 04/28/21 10:19 AMB [id number]) Balance Tests mCTSIB mCTSIB Position 1 30 seconds mCTSIB Position 2 30 seconds mCTSIB Position 3 30seconds mCTSIB Position 4 20 seconds-opens eyes Other Other Balance Tests Performed reduced proprioception at right great toe, WNL at bilateral ankles PT-OP-E Functional Tests Start: 04/17/21 14:27 Freq: Status: Active Protocol: Document 04/23/21 09:45 AMB (Rec: 04/28/21 10:19 AMB [id number]) Functional Tests Dynamic Gait Index (DGI) Score 23 DGI Impairment Rating 1 to <20% Impaired (Score 20- 23) PT-OP-G Mobility & Gait Start: 04/17/21 14:27 Freq: Status: Active Protocol: Document 04/23/21 09:45 AMB (Rec: 04/28/21 10:19 AMB [id number]) OP Gait Assessment Comments Gait Comments Ambulates over smooth surfaces without AD with good stride length/speed PT-OP-M Strength Start: 04/17/21 14:27 Freq: Status: Active Protocol: Document 04/23/21 09:45 AMB (Rec: 04/28/21 10:19 AMB [id number]) Ankle/Foot Strength Ankle and Foot Manual Muscle Testing Right Dorsiflexion (L4) 4 Good Plantarflexion (S1) 4 Good Inversion 4 Good Eversion (S1) 4 Good Left Dorsiflexion (L4) 4 Good Plantarflexion (S1) 4 Good Inversion 4 Good Eversion (S1) 4 Good PT-OP-Q Treatments Start: 04/17/21 14:27 Freq: Status: Active Protocol: Document 05/10/21 09:00 AMB (Rec: 05/10/21 13:05 AMB [id number]) Gait Training Gait Activity outdoor gait Description no AD Comments bark mulch, gravel, up and down curb steps--SBA Neuro Re-Education Treatment Balance Activities corner balance Comments stride stance vs NBOS EC vs EO HT/added foam balance today Other Activities 3 step Comments 3 step and head turn, 3 step and single leg stance- challenging PT-OP-T Assessment and Plan Start: 04/17/21 14:27 Freq: Status: Active Protocol: Document 05/10/21 09:00 AMB (Rec: 05/10/21 13:05 AMB [id number]) Physical Therapy Assessment Goals Two Impairment Gait Short Term Goal (STG) Teri will ambulate 1,000 feet or more in 6 minutes over smooth surface without AD to show appropriate speed for her age/gender. STG Duration MET Senior Care Goal (LTG) Teri will ambulate on uneven terrain (grass/gravel/ hills) without AD without LOB or fear of falling. LTG Duration MET One Impairment Balance Short Term Goal (STG) Teri will show improved balance by balancing on foam with eyes closed for 30 seconds. STG Duration 4 weeks Senior Care Goal (LTG) Teri will show improved balance by scoring 24/24 on the dynamic gait index. LTG Duration 8 weeks Assessment Summary Assessment Progressed HEP to semi tandem balance in corner instead of NBOS. More challenging to perform single leg stance on the L- 3 sec, more 5 sec on the R. Physical Therapy Plan Next Visit Focus/Plan Next Note Type Discharge Summary Next Visit Plan Review HEP
--- NOTE | 2021-05-30 11:03 | PT.OTN ---
Current Diagnoses Unsteadiness on feet (05/30/21) History of falling (05/30/21) Physical Therapy Treatment Note PT-OP-A Visit Information Start: 04/17/21 14:27 Freq: Status: Active Protocol: Document 05/30/21 08:59 AMB (Rec: 05/30/21 09:52 AMB [id number]) Out-Patient Physical Therapy Visit Information Visit Information Visit Type Treatment Note Visit Start Time 09:00 Visit Stop Time 09:45 Total Visit Minutes 45 Visit Number 4 PT-OP-B Current Condition Start: 04/17/21 14:27 Freq: Status: Active Protocol: Document 04/23/21 09:51 AMB (Rec: 04/23/21 10:05 AMB [id number]) Current Condition History of Current Condition Onset Date 6 months ago Current Complaints History of falling, unsteadiness History of Current Condition Tierney reports she has recently finished chemotherapy for endometrial cancer. She has noticed more difficulty getting up from the floor while carrying her great grandson. Goes on a 2 mile walk once a week, does take walking sticks. Did have falls when getting chemo but none in the last 3 months, always fell backwards. Lives with who is 88. Does have a flight of stairs to enter with a railing, lives in a split level. Treatment Goals Patient/Caregiver Goals Going to [place]- wants to walk through the airport Prior Functional Status Baseline Function- ADL's Independent Baseline Function- Mobility Independent Current Functional Impairments (Reported) Functional Limitations- ADL's Less sure of footing with higher level balance Personal Factors Other Personal Factors That May Effect Recently finished chemotherapy Therapy/Recovery for endometrial cancer. PT-OP-C Subjective Start: 04/17/21 14:27 Freq: Status: Active Protocol: Document 05/30/21 09:00 AMB (Rec: 05/30/21 11:02 AMB [id number]) OP-PT Subjective Patient Comments Patient Comments Tierney is wondering if she could walk on [address] by herself safetly, she is goint to [place] next week. PT-OP-D Balance Start: 04/17/21 14:27 Freq: Status: Active Protocol: Document 04/23/21 09:45 AMB (Rec: 04/28/21 10:19 AMB [id number]) Balance Tests mCTSIB mCTSIB Position 1 30 seconds mCTSIB Position 2 30 seconds mCTSIB Position 3 30seconds mCTSIB Position 4 20 seconds-opens eyes Other Other Balance Tests Performed reduced proprioception at right great toe, WNL at bilateral ankles PT-OP-E Functional Tests Start: 04/17/21 14:27 Freq: Status: Active Protocol: Document 04/23/21 09:45 AMB (Rec: 04/28/21 10:19 AMB [id number]) Functional Tests Dynamic Gait Index (DGI) Score 23 DGI Impairment Rating 1 to <20% Impaired (Score 20- 23) PT-OP-G Mobility & Gait Start: 04/17/21 14:27 Freq: Status: Active Protocol: Document 04/23/21 09:45 AMB (Rec: 04/28/21 10:19 AMB [id number]) OP Gait Assessment Comments Gait Comments Ambulates over smooth surfaces without AD with good stride length/speed PT-OP-M Strength Start: 04/17/21 14:27 Freq: Status: Active Protocol: Document 04/23/21 09:45 AMB (Rec: 04/28/21 10:19 AMB [id number]) Ankle/Foot Strength Ankle and Foot Manual Muscle Testing Right Dorsiflexion (L4) 4 Good Plantarflexion (S1) 4 Good Inversion 4 Good Eversion (S1) 4 Good Left Dorsiflexion (L4) 4 Good Plantarflexion (S1) 4 Good Inversion 4 Good Eversion (S1) 4 Good PT-OP-Q Treatments Start: 04/17/21 14:27 Freq: Status: Active Protocol: Document 05/30/21 09:00 AMB (Rec: 06/02/21 11:03 AMB [id number]) Gait Training Gait Activity stairs Description without railing Comments SBA step over step Neuro Re-Education Treatment Balance Activities corner balance Comments stride stance vs NBOS EC vs EO HT/added foam balance today Other Activities 2 Details DGI Comments very slight veering with horizontal head turns, pt self elected to slow gait PT-OP-T Assessment and Plan Start: 04/17/21 14:27 Freq: Status: Active Protocol: Document 05/30/21 08:59 AMB (Rec: 05/30/21 09:52 AMB [id number]) Physical Therapy Assessment Goals Two Impairment Gait Short Term Goal (STG) Teri will ambulate 1,000 feet or more in 6 minutes over smooth surface without AD to show appropriate speed for her age/gender. STG Duration MET Nursing Home Goal (LTG) Teri will ambulate on uneven terrain (grass/gravel/ hills) without AD without LOB or fear of falling. LTG Duration MET One Impairment Balance Short Term Goal (STG) Teri will show improved balance by balancing on foam with eyes closed for 30 seconds. STG Duration MET Nursing Home Goal (LTG) Teri will show improved balance by scoring 24/24 on the dynamic gait index. LTG Duration 23/24 Assessment Summary Assessment Teri is ready for discharge. She scored 23/24 on the DGI, able to go up and down stairs without a railing, but did have mild difficulty with gait with horizontal head turns. While she has had one fall in the last 6 months, it is very unpredictable more like falling backward when standing than a loss of balance. Did spend time educating pt on cost benefit analysis of walking alone. If she is feeling good, in good weather, she could walk while carrying her cellphone and be fairly safe, given her balance tests. She is challenged by single leg stance (3-10 seconds variable performance), she is getting back to yoga and encouraged her in that and her walks. Physical Therapy Plan Discharge Physical Therapy Discharge Reasons Goals Met
== END 2021-06-03 08:33 ==
LOC: PHYS 09:00
PROVIDERS: Family Provider Family Medicine; PCP Family Medicine; Referring Provider Family Medicine; Visit Provider Family Medicine
DX: R26.81 Unsteadiness on feet (principal); Z91.81 History of falling
CPT/HCPCS: 97110; 97112; 97116; 97161

== ENCOUNTER → 2021-09-30 09:53 | Outpatient (CLI) | payer MEDICARE, OTHER, SELFPAY ==
--- NOTE | 2021-09-30 | DI.RAD.S_ITS ---
PROCEDURE: XR SHOULDER LT MIN 2V INDICATIONS: Pain in left shoulder TECHNIQUE: 3 views of the shoulder were acquired. COMPARISON: [facility], CR, XR RIBS RT MIN 3V W CXR 1V, 12/11/2020, 15:13. FINDINGS: Bones: There is a distal clavicular fracture which may potentially be pathologic. Visualized ribs appear intact. Soft tissues: No suspicious soft tissue calcifications. IMPRESSION: There is a distal clavicular fracture, which may potentially be pathologic. Comment: Recommend left shoulder MRI with and without contrast. Comment: An Urgent Findings note was created in PACS to ensure notification of the referring clinician. Dictated by: Mario Chowdary M.D. on 09/30/2021 at 12:20 Approved by: Mraio Chowdary M.D. on 09/30/2021 at 12:29
== END ==
PROVIDERS: Family Provider Family Medicine; PCP Family Medicine; Referring Provider Family Medicine; Visit Provider Family Medicine
DX: S42.032A Displaced fracture of lateral end of left clavicle, initial encounter for closed fracture (principal); M25.512 Pain in left shoulder; X58.XXXA Exposure to other specified factors, initial encounter
CPT/HCPCS: 73030

== ENCOUNTER → 2021-10-02 14:03 | Outpatient (CLI) | payer MEDICARE, OTHER, SELFPAY ==
--- NOTE | 2021-10-02 14:05 | DI.MRI.S_ITS ---
PROCEDURE: MR HEAD/BRAIN WO/W CON INDICATIONS: Syncope and collapse/distal clavical fracture TECHNIQUE: Noncontrast axial T1 spin echo, axial T2 fast spin echo, sagittal and axial FLAIR, coronal T2 fast spin echo, axial gradient echo, axial diffusion and ADC through the brain. After the administration of contrast, axial and coronal and sagittal 3D VIBE or T1 spin echo with fat saturation through the brain. COMPARISON: None. FINDINGS: Image quality: Excellent. CSF Spaces: Basal cisterns are patent. No extra-axial fluid collections. Ventricles are normal in size and shape. Brain: No midline shift. No intracranial bleeds or masses. No abnormal intracranial enhancement. The brainstem appears normal. Diffusion-weighted images demonstrate no acute infarct. Moderate atrophy and multifocal white matter chronic ischemic change. Normal intravascular flow voids are present. Skull and face: Calvarial marrow is normal in signal. Orbits appear normal. Sinuses: Sinuses and mastoids appear clear. IMPRESSION: Moderate atrophy and white matter chronic ischemic change without intracranial hemorrhage, acute infarct or mass lesion. Approved by: Breezy Soto M.D. on 10/02/2021 at 16:11
--- NOTE | 2021-10-02 14:07 | DI.MRI.S_ITS ---
PROCEDURE: MR SHOULDER LT WO/W CON INDICATIONS: Syncope and collapse/distal clavical fracture TECHNIQUE: Noncontrast oblique coronal T1 spin echo and T2 fast spin echo with fat saturation, oblique sagittal T1 spin echo and T2 fast spin echo with fat saturation, axial T1 spin echo and T2 fast spin echo with fat saturation through the shoulder. Post-contrast oblique coronal, oblique sagittal, and axial T1 spin echo with fat saturation through the shoulder. COMPARISON: [facility], CR, XR SHOULDER LT MIN 2V, 09/30/2021, 10:43. FINDINGS: Image quality: Excellent. Rotator cuff: There is partial-thickness tear of the supraspinatus tendon involving the footprint. There is mild supraspinatus muscle atrophy. Mild infraspinatus and moderate subscapularis tendinosis. Bones and bursae: There is comminuted fracture of the distal clavicle with mild displacement. Mild acromioclavicular and glenohumeral joint degeneration. The acromion demonstrates conventional anatomy, without an os acromiale. Small subcoracoid bursal fluid is present. Capsule and soft tissues: Soft tissue edema around the distal clavicle consistent with traumatic soft tissue contusion. Degenerative anterior labral fraying. The long head of the biceps tendon demonstrates normal location and morphology. The rotator interval appears normal, without fibrosis. The coracohumeral ligament is normal in thickness. IMPRESSION: 1. Partial-thickness tear of the supraspinatus tendon involving the footprint. There is mild supraspinatus muscle atrophy. 2. Mild infraspinatus and moderate subscapularis tendinosis. 3. Distal clavicular fracture with mild displacement. 4. Mild acromioclavicular and glenohumeral joint degeneration. 5. Degenerative anterior labral fraying. 6. Small subcoracoid bursal fluid suggesting mild bursitis. Dictated by: Ana Knapp M.D. on 10/02/2021 at 16:58 Approved by: Ana Knapp M.D. on 10/03/2021 at 9:16
== END ==
PROVIDERS: Family Provider Family Medicine; PCP Family Medicine; Referring Provider Family Medicine; Visit Provider Family Medicine
DX: R55 Syncope and collapse (principal); C54.1 Malignant neoplasm of endometrium; M84.411A Pathological fracture, right shoulder, initial encounter for fracture; M75.112 Incomplete rotator cuff tear or rupture of left shoulder, not specified as traumatic; M19.012 Primary osteoarthritis, left shoulder; M25.512 Pain in left shoulder; Z91.81 History of falling
CPT/HCPCS: 70553; 73223; A9579

== ENCOUNTER 2021-10-24 09:12 | Outpatient (CLI) | payer MEDICARE, OTHER, SELFPAY | END 2021-10-28 12:31 | disposition home or self-care (01) | LOC: PHYS 09:12 | PROVIDERS: Family Provider Family Medicine; PCP Family Medicine; Referring Provider Family Medicine; Visit Provider Family Medicine | DX: G62.89 Other specified polyneuropathies (principal) | CPT/HCPCS: 95886; 95910 ==

== ENCOUNTER → 2022-04-07 08:28 | Outpatient (CLI) | payer MEDICARE, OTHER, SELFPAY ==
--- NOTE | 2022-04-07 08:30 | DI.US.S_ITS ---
PROCEDURE: US CAROTID DOPPLER BI INDICATIONS: HISTORY OF TRANSIENT ISCHEMIC ATTACK TECHNIQUE: Color and pulse Doppler interrogation was performed of both carotid systems, with image documentation and velocity measurements. COMPARISON: None. FINDINGS: Stenosis calculations are based on SRU (Society of Radiologists in Ultrasound) criteria. Right side: Brachial blood pressure: 179/108 mm Hg. Common carotid artery peak systolic velocity: 76.1 cm/sec. Internal carotid artery peak systolic velocity: 129.6 cm/sec. Internal carotid artery end diastolic velocity: 121.6 cm/sec. External carotid artery peak systolic velocity: 112.5 cm/sec. ICA/CCA peak systolic ratio: 1.7 . Fischer scale imaging description: Atheromatous plaque is present within the common carotid artery and the carotid bifurcation. Percent internal carotid artery stenosis: 50-69% stenosis. Vertebral artery: Flow direction is antegrade. Left side: Brachial blood pressure: 178/90 mm Hg. Common carotid artery peak systolic velocity: 87.9 cm/sec. Internal carotid artery peak systolic velocity: 61.8 cm/sec. Internal carotid artery end diastolic velocity: 96.6 cm/sec. External carotid artery peak systolic velocity: 107.0 cm/sec. ICA/CCA peak systolic ratio: 1.1. Fischer scale imaging description: Atheromatous plaque is present throughout the common carotid and the bifurcation. Percent internal carotid artery stenosis: Less than 50% stenosis. Vertebral artery: Flow direction is antegrade. IMPRESSION: 1. 50-69% stenosis of the right internal carotid artery. 2. Less than 50% stenosis of the left internal carotid artery. 3. Systemic hypertension. Dictated by: Nieves aTylor M.D. on 04/07/2022 at 9:57 Approved by: Nieves Taylor M.D. on 04/07/2022 at 9:59
== END ==
PROVIDERS: Family Provider Family Medicine; PCP Family Medicine; Referring Provider Psychiatry & Neurology Neurology; Visit Provider Psychiatry & Neurology Neurology
DX: R55 Syncope and collapse (principal); R90.82 White matter disease, unspecified; I10 Essential (primary) hypertension; I65.23 Occlusion and stenosis of bilateral carotid arteries; Z86.73 Personal history of transient ischemic attack (TIA), and cerebral infarction without residual deficits
CPT/HCPCS: 93880

== ENCOUNTER 2022-04-18 12:56 | Emergency (ER) | payer MEDICARE, OTHER, SELFPAY ==
[2022-04-18] VITALS (14 sets, daily range): BP systolic 182–209; BP diastolic 80–107; PULSE 82–103; RESP 11–35; TEMP 36.7; O2SAT 98–100; BMI 23.0
--- NOTE | 2022-04-18 15:33 | DI.CT.S_ITS ---
PROCEDURE: CT HEAD/BRAIN WO CON INDICATIONS: Syncopal episode, hit head, on asa TECHNIQUE: Noncontrast 4.5 mm thick angled axial sections acquired from the foramen magnum to the vertex, with coronal and sagittal reformats. For radiation dose reduction, the following was used: automated exposure control, adjustment of mA and/or kV according to patient size. COMPARISON: [facility], CT, CT HEAD/BRAIN WO CON, 12/11/2020, 15:21. FINDINGS: Image quality: Excellent. CSF spaces: Basal cisterns are patent. No extra-axial fluid collections. The ventricles are symmetric in size and shape. Brain: No intracranial bleeds or masses. There is cerebral volume loss for age, with resultant ventricular and sulcal prominence. There are periventricular and deep white matter chronic small vessel ischemic changes. There is intracranial internal carotid artery atherosclerosis. Skull and face: Calvarium and visualized facial bones appear intact, without suspicious lesions. Sinuses: Visualized sinuses and mastoids are clear. IMPRESSION: No trauma found. No intracranial hemorrhage suspected. Dictated by: Marcos Khanna M.D. on 04/18/2022 at 15:50 Approved by: Marcos Khanna M.D. on 04/18/2022 at 15:51
--- NOTE | 2022-04-18 15:34 | DI.RAD.S_ITS ---
PROCEDURE: XR CHEST 1V INDICATIONS: syncope TECHNIQUE: One view of the chest was acquired. COMPARISON: None. FINDINGS: Surgical changes and devices: None. Lungs and pleura: Lungs are clear. No pleural effusions or pneumothorax. Mediastinum: Mediastinal contours appear normal. Heart size is normal. Bones and chest wall: No suspicious bony lesions. Overlying soft tissues appear unremarkable. IMPRESSION: Normal for age, source of current syncopal episode symptoms is not seen. Dictated by: Marcos Khanna M.D. on 04/18/2022 at 15:51 Approved by: Marcos Khanna M.D. on 04/18/2022 at 15:51
--- NOTE | 2022-04-18 15:57 | PC.NURSE ---
Patient reports change in balance since fall. Reports feeling off balance and slightly dizzy with position changes mainly sitting to standing. Patient family noticed her balance appeared to be different.
[2022-04-18 16:10] LABS: Bacteria Urine None Seen; Culture Indicated Urine Cult Not Indicated; RBC Urine 0-1/HPF (0-5/HPF); Squamous Epithelial Cell Urine 0-1 /HPF (0-5/HPF); WBC Urine 0-1/HPF (0-5/HPF)
[2022-04-18 16:11] LABS: PTT Partial Thromboplastin Tim 28 SECONDS (26-36)
[2022-04-18 16:12] LABS: Add Manual Diff / Slide Review NO; Basophils Absolute Auto 100 /uL (0-100); Basophils Percent Auto 0.5 % (0-2); Eosinophils Absolute Auto 100 /uL (0-450); Eosinophils Percent Auto 0.5 % (2-4); Hematocrit 42.9 % (36-46); Hemoglobin 14.4 g/dL (12.0-16.0); Lymphocytes Absolute Auto 2100 /uL (1100-4500); Lymphocytes Percent Auto 22.5 % (25-40); Mean Corpuscular HGB Conc 33.5 % (30-36); Mean Corpuscular Hemoglobin 34.9 PG (26-34); Monocytes Absolute Auto 1200 /uL (0-900); Monocytes Percent Auto 12.7 % (3-14); Neutrophils Absolute Auto 6000 /uL (1500-7000); Neutrophils Percent Auto 63.8 % (50-75); Platelet Count 220 X10^3/uL (150-400); Red Blood Cell Count 4.13 X10^6/uL (4.0-5.2); Red Cell Distribution Width 12.7 % (11.6-14.8); White Blood Cell Count 9.4 X10^3/uL (4.5-11.0)
[2022-04-18 16:14] LABS: Alanine Aminotransferase 62 IU/L (<35); Albumin 4.7 g/dL (3.5-5.0); Albumin Globulin Ratio 1.4 (1.0-2.8); Alkaline Phosphatase 93 U/L (38-126); Aspartate Aminotransferase 54 IU/L (14-36); BUN Creatinine Ratio 15.8 (6-22); Bilirubin Total 0.9 mg/dL (0.2-1.3); Blood Urea Nitrogen 12 mg/dL (7-17); Calcium 9.2 mg/dL (8.4-10.2); Carbon Dioxide 26 mmol/L (22-32); Chloride 102 mmol/L (98-107); Creatine Kinase 67 U/L (30-135); Estimated Glomerular Filt Rate > 60 mL/min (>60); Globulin 3.3 g/dL (1.7-4.1); Glucose 104 mg/dL (80-110); HEMOLYSIS < 15 (0-50); Lipase 55 U/L (23-300); Potassium 3.9 mmol/L (3.4-5.1); Sodium 139 mmol/L (137-145)
[2022-04-18 16:22] LABS: D Dimer 1198 ng/ml (<500)
[2022-04-18 16:25] LABS: NT-proBNP (BNP-Adult 18+) 492 pg/mL (<450); Troponin I < 0.012 ng/mL (0.01-0.034)
--- NOTE | 2022-04-18 16:42 | ED_ITS ---
HPI - Fall <Itzel Wade PA-C - Last Filed: 04/18/22 19:29> General Chief Complaint: Fall Stated Complaint: fell last night, hit head, has bump on head, hip p Time Seen by Provider: 04/18/22 15:33 Source: patient Mode of arrival: Ambulatory History of Present Illness HPI Narrative: 82-year-old female presents with her granddaughters with concern for hitting her head and some right hip pain 2nd to a fall last night with a syncopal episode. Patient states it was around dinnertime and she was standing in the living room and all of a sudden she just dropped to the floor. She states that she had no prodrome of dizziness, lightheadedness, palpitations or other. She actually states she is been feeling very well recently and denies any recent illness any recent falls other syncopal episodes recently. She does state she is had multiple syncopal episodes about 8 over the past 2 years and has been evaluated for these including recently carotid exam which she has not gotten results back from. She does endorse sometimes that when she is sitting and goes to stand she has to ?steady herself? this has been chronic for a while but seems to be worsening in the past few months. She does not endorse any dizziness but feels slightly lightheaded when this happens. She states she does drink plenty of water at least 2 L a day and has done so for a few months now. She does admit to drinking ?1 glass of wine with dinner every night. She has been ambulating with slight pain in her right hip she feels it is ?a bruise?. Denies shortness of breath, chest pain, nausea vomiting diarrhea abdominal pain or other symptoms. Related Data Home Medications Medication Instructions Recorded Confirmed aspirin 81 mg tablet 81 mg PO DAILY 08/22/20 09/23/21 multivit with 1 tab PO DAILY 08/22/20 09/23/21 kdotmsre-rfey-WW-lutein 8 mg iron-400 mcg-300 mcg tablet (Centrum Silver Women) Allergies Allergy/AdvReac Type Severity Reaction Status Date / Time erythromycin base Allergy Unknown Verified 04/18/22 13:29 [ERYTHROMYCIN BASE] cephalexin [From KEFLEX] AdvReac Mild HOT FLASHES Verified 04/18/22 17:24 Penicillins AdvReac Mild hot flashes Verified 04/18/22 17:24 Patient History <Itzel Wade PA-C - Last Filed: 04/18/22 19:29> Surgical History (Updated 07/07/17 @ 06:25 by Conversion Provider) Status post appendectomy Status post surgery (04/17/17) Status post tonsillectomy and adenoidectomy Social History Smoking Status: Never smoker Smoking Status: Never smoker alcohol intake frequency: 0-2 drinks per day Alcohol type: wine Substance Use Type: does not use Exam <Itzel Wade PA-C - Last Filed: 04/18/22 19:29> Narrative Exam Narrative: GENERAL: 82 year old patient appears stated age. Well-developed patient, in mild distress. HEAD: There is slight purplish red discoloration and mild hematoma that is non fluctuant with no bleeding or broken skin over the posterior parietal/crown on the patient's left skull, Otherwise Atraumatic. Normocephalic. EYES: Pupils equal round and reactive. Extraocular motions intact. No scleral icterus. No injection or drainage. ENT: Nose without bleeding, purulent drainage. Throat without erythema, tonsillar hypertrophy or exudate. Airway patent. NECK: Trachea midline. Non tender C-spine, T-spine and L-spine. CARDIOVASCULAR: Regular rate and rhythm without murmurs, gallops, or rubs. RESPIRATORY: Clear to auscultation. Breath sounds equal bilaterally. No wheezes, rales, or rhonchi. GASTROINTESTINAL: Abdomen soft, non-tender, nondistended. EXTREMITIES: There is tenderness with palpation over the right trochanter and right proximal femur. Patient has report of some right hip pain with palpation over the left trochanter. Range of motion of the lower extremities is intact passive and active pain-free. No edema or joint tenderness. BACK: Nontender without deformity or crepitance. No flank tenderness. NEURO: AOx3. SKIN: No rash or erythema of visible areas Initial Vital Signs Initial Vital Signs: Vital Signs Temperature 98.1 F 04/18/22 13:25 Pulse Rate 99 H 04/18/22 13:25 Respiratory Rate 19 04/18/22 13:25 Blood Pressure 188/104 H 04/18/22 13:25 Pulse Oximetry 99 04/18/22 13:25 Oxygen Delivery Method 04/18/22 13:25 <Nalini Harmon DO - Last Filed: 04/19/22 07:05> Initial Vital Signs Initial Vital Signs: Vital Signs Temperature 98.1 F 04/18/22 13:25 Pulse Rate 99 H 04/18/22 13:25 Respiratory Rate 19 04/18/22 13:25 Blood Pressure 188/104 H 04/18/22 13:25 Pulse Oximetry 99 04/18/22 13:25 Oxygen Delivery Method 04/18/22 13:25 Course <Itzel Wade PA-C - Last Filed: 04/18/22 19:29> Course Course Narrative: Age adjusted D-dimer is 820, patient's D-dimer today is 1198. Did discuss this with Dr. Wheat. We may pursue CT PE given her history of syncopal episodes and she has not had this study done. Of course there are other potential causes for the elevated D-dimer this patient. Orders Ordered: Discontinued Medications Acetaminophen (Acetaminophen 325 Mg Tablet) 325 mg PO NOW ONE Stop: 04/18/22 17:16 Last Admin: 04/18/22 17:34 Dose: 325 mg Documented By: [facility] Vital Signs Vital signs: Vital Signs - 8 hr 04/18/22 13:25 04/18/22 15:17 04/18/22 15:18 Temperature 98.1 F Pulse Rate 99 H Respiratory Rate 19 Blood Pressure 188/104 H 187/95 H 185/90 H Pulse Oximetry 99 Oxygen Delivery Method Room Air 04/18/22 15:18 04/18/22 15:30 04/18/22 15:30 Temperature Pulse Rate 96 H 94 H Respiratory Rate 23 29 H Blood Pressure 197/107 H Pulse Oximetry 100 99 Oxygen Delivery Method 04/18/22 15:54 04/18/22 15:54 04/18/22 16:00 Temperature Pulse Rate 93 H Respiratory Rate 19 Blood Pressure 193/94 H 193/86 H Pulse Oximetry 99 Oxygen Delivery Method 04/18/22 16:00 04/18/22 16:30 04/18/22 16:30 Temperature Pulse Rate 87 84 Respiratory Rate 11 L 25 H Blood Pressure 192/90 H Pulse Oximetry 100 99 Oxygen Delivery Method 04/18/22 17:00 04/18/22 17:00 04/18/22 17:04 Temperature Pulse Rate 88 Respiratory Rate 25 H Blood Pressure 209/93 H 198/93 H Pulse Oximetry 99 Oxygen Delivery Method 04/18/22 17:04 04/18/22 17:30 04/18/22 18:10 Temperature Pulse Rate 92 H 103 H 98 H Respiratory Rate 18 35 H 21 Blood Pressure Pulse Oximetry 99 99 Oxygen Delivery Method 04/18/22 18:30 04/18/22 19:00 Temperature Pulse Rate 86 82 Respiratory Rate 34 H 21 Blood Pressure Pulse Oximetry 98 98 Oxygen Delivery Method <Nalini Harmon, DO - Last Filed: 04/19/22 07:05> Orders Ordered: Discontinued Medications Acetaminophen (Acetaminophen 325 Mg Tablet) 325 mg PO NOW ONE Stop: 04/18/22 17:16 Last Admin: 04/18/22 17:34 Dose: 325 mg Documented By: [facility] Vital Signs Vital signs: Vital Signs - 8 hr 04/18/22 13:25 04/18/22 15:17 04/18/22 15:18 Temperature 98.1 F Pulse Rate 99 H Respiratory Rate 19 Blood Pressure 188/104 H 187/95 H 185/90 H Pulse Oximetry 99 Oxygen Delivery Method Room Air 04/18/22 15:18 04/18/22 15:30 04/18/22 15:30 Temperature Pulse Rate 96 H 94 H Respiratory Rate 23 29 H Blood Pressure 197/107 H Pulse Oximetry 100 99 Oxygen Delivery Method 04/18/22 15:54 04/18/22 15:54 04/18/22 16:00 Temperature Pulse Rate 93 H Respiratory Rate 19 Blood Pressure 193/94 H 193/86 H Pulse Oximetry 99 Oxygen Delivery Method 04/18/22 16:00 04/18/22 16:30 04/18/22 16:30 Temperature Pulse Rate 87 84 Respiratory Rate 11 L 25 H Blood Pressure 192/90 H Pulse Oximetry 100 99 Oxygen Delivery Method 04/18/22 17:00 04/18/22 17:00 04/18/22 17:04 Temperature Pulse Rate 88 Respiratory Rate 25 H Blood Pressure 209/93 H 198/93 H Pulse Oximetry 99 Oxygen Delivery Method 04/18/22 17:04 04/18/22 17:30 04/18/22 18:10 Temperature Pulse Rate 92 H 103 H 98 H Respiratory Rate 18 35 H 21 Blood Pressure Pulse Oximetry 99 99 Oxygen Delivery Method 04/18/22 18:30 04/18/22 19:00 Temperature Pulse Rate 86 82 Respiratory Rate 34 H 21 Blood Pressure Pulse Oximetry 98 98 Oxygen Delivery Method MDM - Fall <Itzel Wade PA-C - Last Filed: 04/18/22 19:29> Differential Diagnosis Differential diagnosis: Likely syncope and other (closed head injury, hip fracture, PE, arrhythmia, hypertension) Medical Records Medical records narrative: I reviewed the patient's medical record Lab Data Lab results narrative: I reviewed the patient's lab results 04/18/22 15:51 04/18/22 15:51 Labs: Lab Results 04/18/22 04/18/22 04/18/22 Range/Units 15:36 15:51 15:51 WBC 9.4 (4.5-11.0) X10^3/uL RBC 4.13 (4.0-5.2) X10^6/uL Hgb 14.4 (12.0-16.0) g/dL Hct 42.9 (36-46) % MCV 104.0 H (80-100) fL MCH 34.9 H (26-34) PG MCHC 33.5 (30-36) % RDW 12.7 (11.6-14.8) % Plt Count 220 (150-400) X10^3/uL Neut % (Auto) 63.8 (50-75) % Lymph % (Auto) 22.5 L (25-40) % [place] % (Auto) 12.7 (3-14) % Eos % (Auto) 0.5 L (2-4) % Baso % (Auto) 0.5 (0-2) % Neut # (Auto) 6000 (7566-1762) /uL Lymph # (Auto) 2100 (2697-4424) /uL [place] # (Auto) 1200 H (0-900) /uL Eos # (Auto) 100 (0-450) /uL Baso # (Auto) 100 (0-100) /uL PT 11.0 (10.1-12.7) SECONDS INR 1.0 (0.9-1.3) APTT 28 (26-36) SECONDS D-Dimer (<500) ng/ml Sodium (137-145) mmol/L Potassium (3.4-5.1) mmol/L Chloride (98-107) mmol/L Carbon Dioxide (22-32) mmol/L BUN (7-17) mg/dL Creatinine (0.52-1.04) mg/dL Estimated GFR (>60) mL/min BUN/Creatinine Ratio (6-22) Glucose (80-110) mg/dL Calcium (8.4-10.2) mg/dL Total Bilirubin (0.2-1.3) mg/dL AST (14-36) IU/L ALT (<35) IU/L Alkaline Phosphatase (38-126) U/L Total Creatine Kinase (30-135) U/L CK-MB (CK-2) CK-MB (CK-2) Rel Index Troponin I (0.01-0.034) ng/mL NT-Pro-B Natriuret Pep (<450) pg/mL Total Protein (6.3-8.2) g/dL Albumin (3.5-5.0) g/dL Globulin (1.7-4.1) g/dL Albumin/Globulin Ratio (1.0-2.8) Lipase (23-300) U/L Urine RBC 0-1/hpf (0-5/HPF) Urine WBC 0-1/hpf (0-5/HPF) Ur Squamous Epith Cells 0-1 /hpf (0-5/HPF) Urine Bacteria None seen (None) Ur Culture Indicated? Cult not indicated Ethyl Alcohol ( - 10) mg/dL 04/18/22 04/18/22 04/18/22 Range/Units 15:51 15:51 15:51 WBC (4.5-11.0) X10^3/uL RBC (4.0-5.2) X10^6/uL Hgb (12.0-16.0) g/dL Hct (36-46) % MCV (80-100) fL MCH (26-34) PG MCHC (30-36) % RDW (11.6-14.8) % Plt Count (150-400) X10^3/uL Neut % (Auto) (50-75) % Lymph % (Auto) (25-40) % [place] % (Auto) (3-14) % Eos % (Auto) (2-4) % Baso % (Auto) (0-2) % Neut # (Auto) (8359-8169) /uL Lymph # (Auto) (1215-1312) /uL [place] # (Auto) (0-900) /uL Eos # (Auto) (0-450) /uL Baso # (Auto) (0-100) /uL PT (10.1-12.7) SECONDS INR (0.9-1.3) APTT (26-36) SECONDS D-Dimer 1198 H (<500) ng/ml Sodium 139 (137-145) mmol/L Potassium 3.9 (3.4-5.1) mmol/L Chloride 102 (98-107) mmol/L Carbon Dioxide 26 (22-32) mmol/L BUN 12 (7-17) mg/dL Creatinine 0.76 (0.52-1.04) mg/dL Estimated GFR > 60 (>60) mL/min BUN/Creatinine Ratio 15.8 (6-22) Glucose 104 (80-110) mg/dL Calcium 9.2 (8.4-10.2) mg/dL Total Bilirubin 0.9 (0.2-1.3) mg/dL AST 54 H (14-36) IU/L ALT 62 H (<35) IU/L Alkaline Phosphatase 93 (38-126) U/L Total Creatine Kinase 67 (30-135) U/L CK-MB (CK-2) TNP CK-MB (CK-2) Rel Index TNP Troponin I < 0.012 (0.01-0.034) ng/mL NT-Pro-B Natriuret Pep 492 H (<450) pg/mL Total Protein 8.0 (6.3-8.2) g/dL Albumin 4.7 (3.5-5.0) g/dL Globulin 3.3 (1.7-4.1) g/dL Albumin/Globulin Ratio 1.4 (1.0-2.8) Lipase 55 (23-300) U/L Urine RBC (0-5/HPF) Urine WBC (0-5/HPF) Ur Squamous Epith Cells (0-5/HPF) Urine Bacteria (None) Ur Culture Indicated? Ethyl Alcohol < 10 ( - 10) mg/dL Urine Dip Bedside Urine Glucose Negative Bedside Urine Bilirubin - Negative Bedside Urine Ketone - Negative Urine Specific [place] 1.010 Bedside Urine Occult Blood +/- Bedside Urine pH 6.0 Bedside Urine Protein - Negative Bedside Urine Urobilinogen - Negative Bedside Urine Nitrite - Negative Bedside Urine Leukocytes - Negative Esterase Imaging Data Chest x-ray: Radiologist's Impression: [address] [address] XRay Report Signed Patient: Teri Blanco MR#: [id number] : 1940 Acct:[id number] Age/Sex: 82 / F Date of Service: 04/18/22 Loc: ED Accession Number: [id number] ?? Procedure: XR chest 1V Ordering Provider: Nalini Harmon D.O. PROCEDURE:? XR CHEST 1V ? INDICATIONS:? syncope ? TECHNIQUE:? One view of the chest was acquired.? ? COMPARISON:? None. ? FINDINGS:? ? Surgical changes and devices:? None.? ? Lungs and pleura:? Lungs are clear.? No pleural effusions or pneumothorax.? ? Mediastinum:? Mediastinal contours appear normal.? Heart size is normal.? ? Bones and chest wall:? No suspicious bony lesions.? Overlying soft tissues appear unremarkable.? ? IMPRESSION:? Normal for age, source of current syncopal episode symptoms is not seen. ? ? Dictated by: Marcos Khanna M.D. on 04/18/2022 at 15:51 ? ? Approved by: Marcos Khanna M.D. on 04/18/2022 at 15:51?? CT scan - head: Radiologist's Impression: [place] [address] CT Scan Report Signed Patient: Teri Blanco MR#: [id number] : 1940 Acct:[id number] Age/Sex: 82 / F Date of Service: 04/18/22 Loc: ED Accession Number: [id number] ?? Procedure: CT head/brain wo con Ordering Provider: Nalini Harmon D.O. PROCEDURE:? CT HEAD/BRAIN WO CON ? INDICATIONS:? Syncopal episode, hit head, on asa ? TECHNIQUE:? Noncontrast 4.5 mm thick angled axial sections acquired from the foramen magnum to the vertex, with coronal and sagittal reformats.? For radiation dose reduction, the following was used:? automated exposure control, adjustment of mA and/or kV according to patient size.? ? COMPARISON:? [facility], CT, CT HEAD/BRAIN WO CON, 12/11/2020, 15:21. ? FINDINGS:? Image quality:? Excellent.? ? CSF spaces:? Basal cisterns are patent.? No extra-axial fluid collections.? The ventricles are symmetric in size and shape.? ? Brain:? No intracranial bleeds or masses.? There is cerebral volume loss for age, with resultant ventricular and sulcal prominence.? There are periventricular and deep white matter chronic small vessel ischemic changes.? There is intracranial internal carotid artery atherosclerosis.? ? Skull and face:? Calvarium and visualized facial bones appear intact, without suspicious lesions.? ? Sinuses:? Visualized sinuses and mastoids are clear.? ? IMPRESSION:? No trauma found.? No intracranial hemorrhage suspected. ? ? Dictated by: Marcos Khanna M.D. on 04/18/2022 at 15:50 ? ? Approved by: Marcos Khanna M.D. on 04/18/2022 at 15:51?? Extremity x-ray #1: Radiologist's Impression: [address] [address] XRay Report Signed Patient: Teri Blanco MR#: [id number] : 1940 Acct:[id number] Age/Sex: 82 / F Date of Service: 04/18/22 Loc: ED Accession Number: [id number] ?? Procedure: XR hip w pel if done BILAT 2V Ordering Provider: Itzel Wade P.A-C PROCEDURE:? XR HIP W PEL IF DONE BILAT 2V ? INDICATIONS:? right hip pain, tenderness, fall ? TECHNIQUE:? AP pelvis with lateral view(s) of the bilateral hip(s).? ? COMPARISON:? None. ? FINDINGS:? ? Bones:? No fractures or dislocations.? Symmetric appearing cvcf-rn-wzdekxwq bilateral hip joint osteoarthritic changes are seen.? No evidence of avascular necrosis of fe moral head.? Pelvic ring appears intact.? No suspicious bony lesions.? ? Soft tissues:? The visualized bowel gas pattern is normal.? No suspicious soft tissue calcifications.? ? ? IMPRESSION:? Iery-kg-yynddqmf bilateral hip joint osteoarthritis.? No pelvic or hip fracture.? No evidence of avascular necrosis.? ? Dictated by: Florentino Silva M.D. on 04/18/2022 at 18:13 ? ? Approved by: Florentino Silva M.D. on 04/18/2022 at 18:13?? CT scan - chest: Radiologist's Impression: [address] [address] [address] Scan Report Signed Patient: Teri Blanco MR#: [id number] : 1940 Acct:[id number] Age/Sex: 82 / F Date of Service: 04/18/22 Loc: ED Accession Number: [id number] ?? Procedure: CT angio chest PE protocol Ordering Provider: Itzel Wade P.A-C PROCEDURE:? CT ANGIO CHEST PE PROTOCOL ? INDICATIONS:? syncope, elevated D-dimer 1198 ? TECHNIQUE:? After the administration of intravenous contrast, 2 mm thick sections acquired from the pulmonary apices to the posterior costophrenic angles.? 3-dimensional maximum intensity projection (MIP) coronal and sagittal reformats were then acquired through the thorax.? For radiation dose reduction, the following was used:? automated exposure control, adjustment of mA and/or kV according to patient size.? ? COMPARISON:? None. ? FINDINGS:? Image quality:? Excellent.? ? Pulmonary arteries:? Pulmonary arteries are normal in size, and demonstrate no intraluminal filling defects to suggest central pulmonary embolism.? ? Lungs and pleura:? Scattered atelectasis in periphery of bilateral lung kramer are seen.? No acute airspace opacities.? No pleural effusions or pneumothorax.? Central and peripheral airways are patent.? ? Mediastinum:? Heart size is normal, without pericardial effusion.? No mediastinal or hilar adenopathy.? Thoracic aorta is normal in caliber and enhancement.? Esophagus is normal in caliber, with a small hiatal hernia.? ? Bones and chest wall:? No suspicious bony lesions.? No acute vertebral body compression fracture.? Degenerative disc disease throughout thoracic spine is seen.? Thyroid gland is within normal limits.? No axillary or supraclavicular adenopathy.? ? Abdomen:? Visualized upper abdominal solid organs appear normal in the early arterial phase of enhancement.? There is suggestion of hepatic steatosis. ? IMPRESSION:? 1. No evidence of pulmonary emboli.? No thoracic aortic aneurysm or gross dissection. ? 2. Scattered atelectasis in periphery of bilateral lung kramer.? No focal infiltrate, pleural effusion or pneumothorax.? Airway is patent. ? 3. No mediastinal or hilar lymphadenopathy by size criteria.? Small hiatal hernia. ? ? Dictated by: Florentino Silva M.D. on 04/18/2022 at 18:29 ? ? Approved by: Florentino Silva M.D. on 04/18/2022 at 18:31?? ECG Data Interpretation: Heart rate 91 sinus rhythm with no ectopy, no ST changes noted, HI 138 QRS 70 milliseconds QTC 467 milliseconds Treatment and disposition Shared decision making:: Shared decision-making was made in this patient's [facility] department workup evaluation and treatment as well as plan for ongoing care. Patient and both of her granddaughters were included in the shared decision-making. MDM Narrative Medical decision making narrative: This is a generally well-appearing 82-year-old female with a history of occasional syncopal episodes over the last 2 years most recently last night, persistent mild hypertension as yet untreated. Patient also admits to alcohol use on a daily basis reportedly 1 glass of wine with dinner daily. Presented today with daughters with concern for a syncopal episode last night sudden onset while standing with no prodrome. Patient with headache and also complaining of some right hip pain but has been ambulating. Workup today includes for labs as well as cardiac labs, CT head which is unremarkable, hip and pelvis x-rays also unremarkable for fracture but notable for osteoarthritic changes, patient is persistently hypertensive in the emergency department, discussed potential causes of this with the patient and she declined pain medicine with the exception of 325 mg of Tylenol. After consultation with attending physician they feel we should not treat her hypertension at this time since she is otherwise asymptomatic, patient does monitor blood pressures at home every other day, encouraged to continue to do this she does develop new symptoms or persistent hypertension will get into see her primary care sooner or return to the emergency department. Is already scheduled to be seeing her PCP next week. Patient had an elevated D-dimer markedly elevated even with age adjusted cut off and CT PE was pursued for further evaluation as potential cause of her syncope. This returned negative today. She was noted to have a small hiatal hernia otherwise fairly unremarkable study. Recent carotid Doppler study reviewed and does show 50-69% occlusion of the right carotid and less than 50% occlusion of the left carotid. Patient will be following up with primary care regarding these results. Certainly possible this could be related to her syncopal episodes. Etiology of patient's repeated syncopal episodes is unclear however there is some possibility that her persistent alcohol use on a daily basis could be a factor. Encouraged to follow up closely with primary care provider. Return precautions provided, follow-up plan discussed, all questions answered. <Nalini Angel Harmon, DO - Last Filed: 04/19/22 07:05> Lab Data Labs: Lab Results 04/18/22 04/18/22 04/18/22 Range/Units 15:36 15:51 15:51 WBC 9.4 (4.5-11.0) X10^3/uL RBC 4.13 (4.0-5.2) X10^6/uL Hgb 14.4 (12.0-16.0) g/dL Hct 42.9 (36-46) % MCV 104.0 H (80-100) fL MCH 34.9 H (26-34) PG MCHC 33.5 (30-36) % RDW 12.7 (11.6-14.8) % Plt Count 220 (150-400) X10^3/uL Neut % (Auto) 63.8 (50-75) % Lymph % (Auto) 22.5 L (25-40) % [place] % (Auto) 12.7 (3-14) % Eos % (Auto) 0.5 L (2-4) % Baso % (Auto) 0.5 (0-2) % Neut # (Auto) 6000 (6235-9713) /uL Lymph # (Auto) 2100 (4757-8896) /uL [place] # (Auto) 1200 H (0-900) /uL Eos # (Auto) 100 (0-450) /uL Baso # (Auto) 100 (0-100) /uL PT 11.0 (10.1-12.7) SECONDS INR 1.0 (0.9-1.3) APTT 28 (26-36) SECONDS D-Dimer (<500) ng/ml Sodium (137-145) mmol/L Potassium (3.4-5.1) mmol/L Chloride (98-107) mmol/L Carbon Dioxide (22-32) mmol/L BUN (7-17) mg/dL Creatinine (0.52-1.04) mg/dL Estimated GFR (>60) mL/min BUN/Creatinine Ratio (6-22) Glucose (80-110) mg/dL Calcium (8.4-10.2) mg/dL Total Bilirubin (0.2-1.3) mg/dL AST (14-36) IU/L ALT (<35) IU/L Alkaline Phosphatase (38-126) U/L Total Creatine Kinase (30-135) U/L CK-MB (CK-2) CK-MB (CK-2) Rel Index Troponin I (0.01-0.034) ng/mL NT-Pro-B Natriuret Pep (<450) pg/mL Total Protein (6.3-8.2) g/dL Albumin (3.5-5.0) g/dL Globulin (1.7-4.1) g/dL Albumin/Globulin Ratio (1.0-2.8) Lipase (23-300) U/L Urine RBC 0-1/hpf (0-5/HPF) Urine WBC 0-1/hpf (0-5/HPF) Ur Squamous Epith Cells 0-1 /hpf (0-5/HPF) Urine Bacteria None seen (None) Ur Culture Indicated? Cult not indicated Ethyl Alcohol ( - 10) mg/dL 04/18/22 04/18/22 04/18/22 Range/Units 15:51 15:51 15:51 WBC (4.5-11.0) X10^3/uL RBC (4.0-5.2) X10^6/uL Hgb (12.0-16.0) g/dL Hct (36-46) % MCV (80-100) fL MCH (26-34) PG MCHC (30-36) % RDW (11.6-14.8) % Plt Count (150-400) X10^3/uL Neut % (Auto) (50-75) % Lymph % (Auto) (25-40) % [place] % (Auto) (3-14) % Eos % (Auto) (2-4) % Baso % (Auto) (0-2) % Neut # (Auto) (0306-9883) /uL Lymph # (Auto) (1109-3248) /uL [place] # (Auto) (0-900) /uL Eos # (Auto) (0-450) /uL Baso # (Auto) (0-100) /uL PT (10.1-12.7) SECONDS INR (0.9-1.3) APTT (26-36) SECONDS D-Dimer 1198 H (<500) ng/ml Sodium 139 (137-145) mmol/L Potassium 3.9 (3.4-5.1) mmol/L Chloride 102 (98-107) mmol/L Carbon Dioxide 26 (22-32) mmol/L BUN 12 (7-17) mg/dL Creatinine 0.76 (0.52-1.04) mg/dL Estimated GFR > 60 (>60) mL/min BUN/Creatinine Ratio 15.8 (6-22) Glucose 104 (80-110) mg/dL Calcium 9.2 (8.4-10.2) mg/dL Total Bilirubin 0.9 (0.2-1.3) mg/dL AST 54 H (14-36) IU/L ALT 62 H (<35) IU/L Alkaline Phosphatase 93 (38-126) U/L Total Creatine Kinase 67 (30-135) U/L CK-MB (CK-2) TNP CK-MB (CK-2) Rel Index TNP Troponin I < 0.012 (0.01-0.034) ng/mL NT-Pro-B Natriuret Pep 492 H (<450) pg/mL Total Protein 8.0 (6.3-8.2) g/dL Albumin 4.7 (3.5-5.0) g/dL Globulin 3.3 (1.7-4.1) g/dL Albumin/Globulin Ratio 1.4 (1.0-2.8) Lipase 55 (23-300) U/L Urine RBC (0-5/HPF) Urine WBC (0-5/HPF) Ur Squamous Epith Cells (0-5/HPF) Urine Bacteria (None) Ur Culture Indicated? Ethyl Alcohol < 10 ( - 10) mg/dL Urine Dip Bedside Urine Glucose Negative Bedside Urine Bilirubin - Negative Bedside Urine Ketone - Negative Urine Specific [place] 1.010 Bedside Urine Occult Blood +/- Bedside Urine pH 6.0 Bedside Urine Protein - Negative Bedside Urine Urobilinogen - Negative Bedside Urine Nitrite - Negative Bedside Urine Leukocytes - Negative Esterase Discharge Plan Departure Patient Disposition: Home Clinical Impression: Syncope, Fall, Acute pain of right hip Instructions: DI for Syncope in Adults (Fainting), How to Prevent Falls Activity Restrictions/Additional Instructions: Thank you for letting us be part of your care in the emergency department today. We did evaluation with labs, CT scan of your head, we also did x-ray of your hip and after obtaining an abnormal lab and discussion with you and your granddaughter's we also did a CT PE study to evaluate for possible blood clot in your lungs. Your workup today was generally reassuring, although we still do not have a definitive cause for your syncopal episodes and your fall last night. As we discussed I do encourage you to reduce your drinking, even 1 glass of wine with dinner and someone your age can potentially cause you to have these episodes. I would like you to follow-up closely with your primary care provider as planned next week, your blood pressure was elevated in the emergency department today, and you should check her blood pressures regularly over the next week prior to your visit with your primary care doctor, if you have persistently elevated blood pressures in the 190s or any additional new symptoms you should definitely get into see her as soon as possible for further evaluation and possibly starting blood pressure medications. There is no evidence of an emergent or life threatening illness at this time, but follow up with your doctor in 1-2 days is recommended nonetheless to continue to rule out serious underlying causes of your symptoms. Please call the office for an appointment. Please return to the Emergency Department for any worsening or persistent symptoms. Please take medications as directed. Prescriptions: No Action aspirin 81 mg Tablet 81 mg PO DAILY Centrum Silver Women 8 mg iron-400 mcg-300 mcg Tablet 1 tab PO DAILY Referrals: Itzel Payne MD [Primary Care Provider] - Stand Alone Forms: Patient Portal/API <Nalini Harmon DO - Last Filed: 04/19/22 07:05> Cosign ED Attending Deacon[employer] Attestation: I was immediately available in the department for consultation. Documentation has been reviewed.
--- NOTE | 2022-04-18 17:13 | DI.CT.S_ITS ---
PROCEDURE: CT ANGIO CHEST PE PROTOCOL INDICATIONS: syncope, elevated D-dimer 1198 TECHNIQUE: After the administration of intravenous contrast, 2 mm thick sections acquired from the pulmonary apices to the posterior costophrenic angles. 3-dimensional maximum intensity projection (MIP) coronal and sagittal reformats were then acquired through the thorax. For radiation dose reduction, the following was used: automated exposure control, adjustment of mA and/or kV according to patient size. COMPARISON: None. FINDINGS: Image quality: Excellent. Pulmonary arteries: Pulmonary arteries are normal in size, and demonstrate no intraluminal filling defects to suggest central pulmonary embolism. Lungs and pleura: Scattered atelectasis in periphery of bilateral lung kramer are seen. No acute airspace opacities. No pleural effusions or pneumothorax. Central and peripheral airways are patent. Mediastinum: Heart size is normal, without pericardial effusion. No mediastinal or hilar adenopathy. Thoracic aorta is normal in caliber and enhancement. Esophagus is normal in caliber, with a small hiatal hernia. Bones and chest wall: No suspicious bony lesions. No acute vertebral body compression fracture. 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 Thyroid gland is within normal limits. No axillary or supraclavicular adenopathy. Abdomen: Visualized upper abdominal solid organs appear normal in the early arterial phase of enhancement. There is suggestion of hepatic steatosis. IMPRESSION: 1. No evidence of pulmonary emboli. No thoracic aortic aneurysm or gross dissection. 2. Scattered atelectasis in periphery of bilateral lung kramer. No focal infiltrate, pleural effusion or pneumothorax. Airway is patent. 3. No mediastinal or hilar lymphadenopathy by size criteria. Small hiatal hernia. Dictated by: Florentino Silva M.D. on 04/18/2022 at 18:29 Approved by: Florentino Silva M.D. on 04/18/2022 at 18:31
--- NOTE | 2022-04-18 17:13 | DI.RAD.S_ITS ---
PROCEDURE: XR HIP W PEL IF DONE BILAT 2V INDICATIONS: right hip pain, tenderness, fall TECHNIQUE: AP pelvis with lateral view(s) of the bilateral hip(s). COMPARISON: None. FINDINGS: Bones: No fractures or dislocations. Symmetric appearing [id number] bilateral hip joint osteoarthritic changes are seen. No evidence of avascular necrosis of femoral head. Pelvic ring appears intact. No suspicious bony lesions. Soft tissues: The visualized bowel gas pattern is normal. No suspicious soft tissue calcifications. IMPRESSION: [id number]-peulxrha bilateral hip joint osteoarthritis. No pelvic or hip fracture. No evidence of avascular necrosis. Dictated by: Florentino Silva M.D. on 04/18/2022 at 18:13 Approved by: Florentino Silva M.D. on 04/18/2022 at 18:13
[2022-04-18] MEDS: ACETAMINOPHEN 325 MG TABLET PO (17:34)
[2022-04-18 19:18] LABS: Ethanol (ETOH) < 10 mg/dL
== END 2022-04-18 19:37 | disposition home or self-care (01) ==
PROVIDERS: Emergency Medicine; Emergency Provider Student in an Organized Health Care Education/Training Program; Family Provider Family Medicine; PCP Family Medicine
DX: R55 Syncope and collapse (principal); M25.551 Pain in right hip; S09.90XA Unspecified injury of head, initial encounter; W18.30XA Fall on same level, unspecified, initial encounter
CPT/HCPCS: 36415; 70450; 71045; 71275; 73521; 80053; 80320; 81003; 81015; 82550; 83690; 83880; 84484; 85025; 85379; 85610; 85730; 93005; 99284; Q9967

== ENCOUNTER → 2022-07-30 14:16 | Outpatient (CLI) | payer MEDICARE, OTHER, SELFPAY ==
--- NOTE | 2022-07-30 14:18 | DI.RAD.S_ITS ---
Bone Density Report Name: ROSS ARMENTA Age: 82 Sex: Female Ethnicity: White Date of : 1940 Indication: postmenopausal; screening for osteoporosis; Referring Provider: ARTIE ORTIZ Study: Bone densitometry was performed. Exam Date: July 30, 2022 Accession number: [id number] Bone Density: Region BMD T-score Z-score Classification AP Spine(L1-L4) 0.943 -0.9 1.8 Normal Femoral Neck (Left) 0.580 -2.4 0.0 Osteopenia Total Hip (Left) 0.682 -2.1 0.1 Osteopenia Femoral Neck (Right) 0.652 -1.8 0.6 Osteopenia Total Hip (Right) 0.744 -1.6 0.6 Osteopenia Total Hip Mean 0.713 -1.9 0.4 Osteopenia World Health Organization criteria for BMD impression classify patients as: Normal (T-score at or above -1.0), Osteopenia (T-score between -1.0 and -2.5), or Osteoporosis (T-score at or below -2.5). 10-year Fracture Risk(1): Major Osteoporotic Fracture 17% Hip Fracture 5.9% Reported Risk Factors: [place] (), Neck BMD=0.580, BMI=23.0 (1) FRAX(R) Version 3.08. Fracture probability calculated for an untreated patient. Fracture probability may be lower if the patient has received treatment. Impression: The patient has low bone mass, based on the Left Femoral Neck T-score. The patient has an estimated ten-year risk of hip fracture of 5.9% and an estimated ten-year risk of major fracture of 17%, based on the WHO FRAX algorithm. Discussion: BONE DENSITY IS LOW AT ONE OR MORE SKELETAL SITES. THE PATIENT'S BMD AND CLINICAL RISK FACTORS CONTRIBUTE TO THIS PATIENT'S INCREASED RISK OF FRACTURE. This patient's lowest T-score is low at one or more skeletal sites. It meets the World Health Organization's (WHO) criteria for low bone mass (T-score between -1.0 and -2.5). The patient's 10-year risk of hip fracture as calculated by FRAX exceeds the threshold where pharmacological therapy is recommended by the National Osteoporosis Foundation (NOF). However, all treatment decisions require clinical judgment and consideration of individual patient factors, including patient preferences, comorbidities, previous drug use, risk factors not captured in the FRAX model (e.g., frailty, falls, vitamin D deficiency, increased bone turnover, interval significant decline in bone density) and possible under or overestimation of fracture risk by FRAX. The patient should follow a healthful lifestyle (good nutrition with adequate calcium and vitamin D, and appropriate weight-bearing exercise). Follow-Up: Consider a repeat BMD and Vertebral Fracture Assessment (VFA) exam in 2 years or sooner if medically necessary, to reassess this patient's status. Reported by: ELIZABETH BARBOZA M.D. on 07/30/2022 3:07:00 PM.
--- NOTE | 2022-07-30 14:18 | DI.MG.S_ITS ---
BILATERAL DIGITAL SCREENING MAMMOGRAM 3D/2D WITH CAD: 07/30/2022 CLINICAL: Routine screening. Comparison is made to exams dated: 05/03/2021 mammogram, 03/14/2019 mammogram, 02/26/2018 mammogram, 02/23/2017 mammogram, and 08/18/2017 mammogram - [facility]. There are scattered areas of fibroglandular density in both breasts (category b / 25%-50% glandular tissue). Current study was also evaluated with a Computer Aided Detection (CAD) system. There are benign vascular calcifications in both breasts. No significant masses, calcifications, or other findings are seen in either breast. There has been no significant interval change. IMPRESSION: BENIGN There is no mammographic evidence of malignancy. A 1 year screening mammogram is recommended. Based on the Tyrer Cuzick model (a risk assessment model) the patient's lifetime risk is 0.6% and her 10 year risk is 0.0%. According to the ACR, ACS, and NCCN guidelines, an annual breast MRI exam along with mammogram is recommended if the patient's lifetime risk is 20% or greater. This exam was interpreted at Station ID: [id number]. NOTE: For mammograms, a report in lay terms will be sent to the patient. Approximately 15% of breast malignancies will not be visualized mammographically. In the management of a palpable breast mass, a negative mammogram must not discourage biopsy of a clinically suspicious lesion. Electronically Signed By: Fareed espinal/boni:07/30/2022 16:10:13 letter sent: Normal Exam ACR BI-RADS Category 2: Benign Finding(s) 3342F
== END ==
PROVIDERS: Family Provider Family Medicine; PCP Family Medicine; Referring Provider Family Medicine; Visit Provider Family Medicine
DX: Z12.31 Encounter for screening mammogram for malignant neoplasm of breast (principal); M81.0 Age-related osteoporosis without current pathological fracture; M85.80 Other specified disorders of bone density and structure, unspecified site
CPT/HCPCS: 77063; 77067; 77080

== ENCOUNTER → 2023-08-24 07:56 | Outpatient (CLI) | payer MEDICARE, OTHER, SELFPAY ==
--- NOTE | 2023-08-24 07:58 | DI.MG.S_ITS ---
BILATERAL DIGITAL SCREENING MAMMOGRAM 3D/2D WITH CAD: 08/24/2023 CLINICAL: Routine screening. Comparison is made to exams dated: 07/30/2022 mammogram, 05/03/2021 mammogram, and 03/14/2019 mammogram - [facility]. Both breasts are heterogeneously dense, which may obscure small masses (category c / 51-75% glandular tissue). Current study was also evaluated with a Computer Aided Detection (CAD) system. There is a biopsy clip in the right breast. No significant masses, calcifications, or other findings are seen in either breast. There has been no significant interval change. IMPRESSION: BENIGN There is no mammographic evidence of malignancy. A 1 year screening mammogram is recommended. Based on the Tyrer Cuzick model (a risk assessment model) the patient's lifetime risk is 0.6% and her 10 year risk is 0.0%. According to the ACR, ACS, and NCCN guidelines, an annual breast MRI exam along with mammogram is recommended if the patient's lifetime risk is 20% or greater. This exam was interpreted at Station ID: [id number]. NOTE: For mammograms, a report in lay terms will be sent to the patient. Approximately 15% of breast malignancies will not be visualized mammographically. In the management of a palpable breast mass, a negative mammogram must not discourage biopsy of a clinically suspicious lesion. Electronically Signed By: Kera Phan M.D., Ph.D. adi/boni:08/24/2023 15:45:47 letter sent: Normal Exam ACR BI-RADS Category 2: Benign Finding(s) 3342F
== END ==
PROVIDERS: Family Provider Family Medicine; PCP Family Medicine; Referring Provider Family Medicine; Visit Provider Family Medicine
DX: Z12.31 Encounter for screening mammogram for malignant neoplasm of breast (principal); R92.333 Mammographic heterogeneous density, bilateral breasts
CPT/HCPCS: 77063; 77067

== ENCOUNTER → 2024-03-11 10:33 | Outpatient (CLI) | payer MEDICARE, OTHER, SELFPAY ==
--- NOTE | 2024-03-11 10:35 | DI.US.S_ITS ---
PROCEDURE: US CAROTID DOPPLER BI INDICATIONS: PVD ADN STENOSIS OF CAROTID ARTERY TECHNIQUE: Color and pulse Doppler interrogation was performed of both carotid systems, with image documentation and velocity measurements. COMPARISON: [facility], , CAROTID DOPPLER BI, 04/07/2022, 8:50. FINDINGS: Stenosis calculations are based on SRU (Society of Radiologists in Ultrasound) criteria. Right side: Brachial blood pressure: 156/73 mm Hg. Common carotid artery peak systolic velocity: 87 cm/sec. Internal carotid artery peak systolic velocity: 177 cm/sec. Internal carotid artery end diastolic velocity: 46 cm/sec. External carotid artery peak systolic velocity: 132 cm/sec. ICA/CCA peak systolic ratio: 2.0. Fischer scale imaging description: Moderate atherosclerotic plaques are seen in distal right common carotid artery and proximal right internal carotid artery. Percent internal carotid artery stenosis: 50-69 percent stenosis.. Vertebral artery: Flow direction is antegrade. Left side: Brachial blood pressure: 153/78 mm Hg. Common carotid artery peak systolic velocity: 82 cm/sec. Internal carotid artery peak systolic velocity: 207 cm/sec. Internal carotid artery end diastolic velocity: 67 cm/sec. External carotid artery peak systolic velocity: 80 cm/sec. ICA/CCA peak systolic ratio: 2.5. Fischer scale imaging description: Moderate atherosclerotic plaques are noted in distal left common carotid artery and proximal left internal carotid artery. Percent internal carotid artery stenosis: 50-69 percent. Vertebral artery: Flow direction is antegrade. IMPRESSION: 1. In the right carotid artery, there is 50-69 percent stenosis based on peak systolic velocity criteria. 2. In the left carotid artery, there is 50-69 percent stenosis based on peak systolic velocity criteria. 3. Antegrade vertebral arteries. Dictated by: Florentino Silva M.D. on 03/11/2024 at 15:04 Approved by: Florentino Silva M.D. on 03/11/2024 at 15:08
== END ==
LOC: US 10:35
PROVIDERS: Family Provider Family Medicine; PCP Family Medicine; Referring Provider Family Medicine; Visit Provider Family Medicine
DX: I65.23 Occlusion and stenosis of bilateral carotid arteries (principal); I73.9 Peripheral vascular disease, unspecified
CPT/HCPCS: 93880